=== PATIENT | female | born 1970 | race Caucasian/White ===

== ENCOUNTER 2017-12-16 08:48 | Observation (INO) | payer BC ==
[~2017-12-16] VITALS: Ht 177.8 cm; Wt 100.0 kg
[~2017-12-16 08:48] MED LIST: ARIP5TAB4 PO; ASPI81TA52 PO; HYDR-569 PO; OMEP20TA5 PO; SIMV10TA6 PO
[2017-12-16] MEDS ORDERED: metoprolol tartrate 1mg/ml inj IV ONE ×2 (08:55→09:18)
[2017-12-16] MEDS ORDERED: aspirin 81mg tab.chew PO ONE (08:55)
[2017-12-16 09:15] LABS: BASOPHILS # (AUTO) 0.1 X10'3 (0-0.2); BASOPHILS % (AUTO) 0.6 % (0-1); EOSINOPHILS # (AUTO) 0.2 X10'3 (0-0.9); EOSINOPHILS % (AUTO) 1.6 % (0-6); HEMOGLOBIN 15.1 g/dl (12.0-16.0); LYMPHOCYTES # (AUTO) 2.5 X10'3 (1.1-4.8); LYMPHOCYTES % (AUTO) 21.3 % (21-51); MEAN CORPUSCULAR HEMOGLOBIN 37.7 PG (27.0-31.0); MEAN CORPUSCULAR HGB CONC 35.1 % (33.0-36.5); MEAN CORPUSCULAR VOLUME 107.5 FL (78-98); MEAN PLATELET VOLUME 7.5 FL (7.4-10.4); MONOCYTES # (AUTO) 0.5 X10'3 (0-0.9); MONOCYTES % (AUTO) 4.1 % (2-12); NEUTROPHILS # (AUTO) 8.7 X10'3 (1.8-7.7); NEUTROPHILS % (AUTO) 72.4 % (42-75); PLATELET COUNT 255 X10'3 (140-440); RED CELL DISTRIBUTION WIDTH 12.4 % (11.5-14.5); WHITE BLOOD COUNT 11.9 X10'3 (4.5-11.0)
[2017-12-16] MEDS ORDERED: nitroGLYCERIN 0.4mg SUBLingual tab SL ONE (09:18)
[2017-12-16] MEDS ORDERED: aspirin 325mg tablet, delayed-release (Ecotrin) PO ONE (09:19)
[2017-12-16] MEDS ORDERED: aspirin 81mg tab.chew ONE (09:20)
[2017-12-16 09:24] LABS: PROTHROMBIN TIME 9.9 SECONDS (9.0-12.0)
[2017-12-16 09:30] LABS: ALANINE AMINOTRANSFERASE 33 U/L (12-78); ALBUMIN 3.8 G/DL (3.4-5.0); ALBUMIN/GLOBULIN RATIO 1.2 (1.1-1.5); ALKALINE PHOSPHATASE 87 IU/L (46-116); ANION GAP 8 (8-16); ASPARTATE AMINO TRANSFERASE 17 U/L (10-37); BILIRUBIN,TOTAL 0.8 MG/DL (0.1-1.0); BLOOD UREA NITROGEN 11 MG/DL (7-18); BUN/CREATININE RATIO 15.1 (6.6-38.0); CALCIUM 8.8 MG/DL (8.5-10.1); CHLORIDE 105 MMOL/L (99-107); CREATININE 0.73 MG/DL (0.40-0.90); GLUCOSE 102 MG/DL (70-104); SODIUM 140 MMOL/L (135-145); TOTAL CARBON DIOXIDE 26.6 MMOL/L (24-32); TOTAL PROTEIN 7.1 G/DL (6.4-8.2); eGFR 85 ML/MIN
[2017-12-16] MEDS: nitroGLYCERIN 0.4mg SUBLingual tab SL PRN ×2 (09:39→09:53)
[2017-12-16] MEDS ORDERED: metoprolol tartrate 25mg tablet ONE (10:14)
[2017-12-16] MEDS ORDERED: metoprolol tartrate 50mg tablet PO ONE (10:20)
[2017-12-16] MEDS ORDERED: regadenoson 0.4mg/5ml syringe IV ONE (10:20)
[2017-12-16] MEDS ORDERED: magnesium Cl slow-release 64mg tablet PO PRN (10:20)
[2017-12-16] MEDS: K and/or MAG REPLACEMENT MC SCH (10:20)
[2017-12-16] MEDS ORDERED: magnesium 4gm in 100ml NS 100 ML IV PRN (10:20)
[2017-12-16] MEDS ORDERED: magnesium hydroxide 30ml (MOM) UD suspension PO PRN (10:20)
[2017-12-16] MEDS ORDERED: HYDROmorphone inj. 0.5 MG/0.5 ML DISP.SYRIN IV PRN ×2 (10:20)
[2017-12-16] MEDS ORDERED: magnesium 2GM in 50ml NS 50 ML IV PRN (10:20)
[2017-12-16] MEDS ORDERED: CAFFEINE CITRATE 60 MG/3 ML injection vial IV PRN (10:20)
[2017-12-16] MEDS ORDERED: potassium Cl 40MEQ/NS 500ml 500 ML IV PRN ×2 (10:20)
[2017-12-16] MEDS ORDERED: nitroGLYCERIN 0.4mg SUBLingual tab SL PRN ×2 (10:20→10:35)
[2017-12-16] MEDS ORDERED: metoprolol tartrate 25mg tablet PO ONE (10:20)
[2017-12-16] MEDS ORDERED: potassium Cl 20 mEq SR tablet PO PRN ×2 (10:20)
[2017-12-16] MEDS ORDERED: mag hydrox/Alum hydrox/simeth 30ml oral suspension PO PRN (10:20)
[2017-12-16] MEDS ORDERED: acetaminophen 325mg tablet PO PRN ×2 (10:20)
[2017-12-16] MEDS ORDERED: ondansetron/PF 4mg/2ml inj IV PRN (10:20)
[2017-12-16] MEDS ORDERED: metoprolol tartrate 1mg/ml inj IV PRN (10:20)
[2017-12-16 11:11] LABS: HEMOGLOBIN A1C 5.6 % (4.5-6.2)
[2017-12-16] MEDS ORDERED: iohexol 350MG/ML 100ml bottle IV ONE (11:59)
[2017-12-16] MEDS ORDERED: lisinopril 20mg tablet ONE (12:51)
[2017-12-16] MEDS: lisinopril 20mg tablet PO SCH (13:07)
[2017-12-16 14:00] VITALS: BP 121/73
[2017-12-16 15:00] VITALS: BP 125/73
[2017-12-16] MEDS ORDERED: HYDROmorphone 1 mg/ml syringe ONE (16:20)
[2017-12-16] MEDS: heparin, porcine 5000 units/ml vial SQ SCH (16:24)
[2017-12-16 18:00] VITALS: BP 112/98
[2017-12-16 19:00] VITALS: BP 160/85
[2017-12-16] MEDS: metoprolol tartrate 12.5mg (1/2 tablet) PO SCH (20:00)
[2017-12-16] MEDS ORDERED: SIMVASTATIN 5 MG PO SCH (21:00)
[2017-12-16] MEDS ORDERED: temazepam 15mg capsule PO PRN (21:00)
[2017-12-16 21:50] LABS: MAGNESIUM 2.2 MG/DL (1.5-2.4); POTASSIUM 3.7 MMOL/L (3.5-5.1)
[2017-12-16 22:00] VITALS: BP 108/82
[2017-12-16] MEDS: HYDROcodone/acetaminophen 5mg/325mg tablet PO PRN (22:43)
[2017-12-16 23:00] VITALS: BP 136/74
[2017-12-17] VITALS (12 sets, daily range): BP systolic 115–175; BP diastolic 62–89
[2017-12-17] MEDS: heparin, porcine 5000 units/ml vial SQ SCH ×3 (00:06→16:00)
[2017-12-17 05:22] LABS: HEMOGLOBIN 14.4 g/dl (12.0-16.0); MEAN CORPUSCULAR HEMOGLOBIN 37.3 PG (27.0-31.0); MEAN CORPUSCULAR HGB CONC 34.3 % (33.0-36.5); MEAN CORPUSCULAR VOLUME 108.9 FL (78-98); MEAN PLATELET VOLUME 8.1 FL (7.4-10.4); PLATELET COUNT 240 X10'3 (140-440); RED BLOOD COUNT 3.85 X10'6 (4.20-5.60); RED CELL DISTRIBUTION WIDTH 12.7 % (11.5-14.5); WHITE BLOOD COUNT 9.5 X10'3 (4.5-11.0)
[2017-12-17 06:03] LABS: ALBUMIN 3.3 G/DL (3.4-5.0); ANION GAP 8 (8-16); BLOOD UREA NITROGEN 13 MG/DL (7-18); BUN/CREATININE RATIO 12.1 (6.6-38.0); CALCIUM 8.7 MG/DL (8.5-10.1); CHLORIDE 108 MMOL/L (99-107); CHOL/HDL RATIO 6.9 (0.00-4.99); CHOLESTEROL 158 MG/DL (0-200); CREATININE 1.07 MG/DL (0.40-0.90); GLUCOSE 120 MG/DL (70-104); HDL CHOLESTEROL 23 MG/DL (35-60); LDL CHOLESTEROL 96 MG/DL (50-100); MAGNESIUM 2.2 MG/DL (1.5-2.4); POTASSIUM 3.6 MMOL/L (3.5-5.1); SODIUM 142 MMOL/L (135-145); TOTAL CARBON DIOXIDE 25.7 MMOL/L (24-32); TRIGLYCERIDES 364 MG/DL (20-135); eGFR 55 ML/MIN
[2017-12-17] MEDS ORDERED: potassium Cl 20 mEq SR tablet PO ONE (06:20)
[2017-12-17] MEDS: lisinopril 20mg tablet PO SCH (07:20)
[2017-12-17] MEDS: metoprolol tartrate 12.5mg (1/2 tablet) PO SCH (07:22)
[2017-12-17] MEDS ORDERED: pantoprazole 40mg Tablet.DR PO SCH (07:30)
[2017-12-17] MEDS ORDERED: regadenoson 0.4mg/5ml syringe IV ONE ×2 (07:40→09:22)
[2017-12-17] MEDS: K and/or MAG REPLACEMENT MC SCH (08:00)
[2017-12-17] MEDS ORDERED: aripiprazole 5mg tablet PO SCH (08:00)
[2017-12-17] MEDS ORDERED: aspirin 325mg tablet PO SCH (08:30)
[2017-12-17] MEDS ORDERED: CAFFEINE CITRATE 60 MG/3 ML injection vial IV ONE (09:22)
[2017-12-17] MEDS ORDERED: pneumococcal 23-VAL P-sac vacc 25 mcg/0.5ml vial IMVAC ONE (10:00)
[2017-12-17] MEDS ORDERED: LISI-600 PO (12:35)
[2017-12-17] MEDS: HYDROcodone/acetaminophen 5mg/325mg tablet PO PRN (12:53)
== END 2017-12-17 16:30 | disposition home or self-care (01) ==
LOC: ER 08:48 → ED HOLD 10:20 → EDBEDREQTM 12:06 → PCU 3S 13:45
PROVIDERS: ADMIT Family Medicine; ATTEND Family Medicine
DX: R07.89 Other chest pain (principal); I10 Essential (primary) hypertension; J43.9 Emphysema, unspecified; F17.210 Nicotine dependence, cigarettes, uncomplicated; I20.0 Unstable angina; F41.1 Generalized anxiety disorder; E78.5 Hyperlipidemia, unspecified; J40 Bronchitis, not specified as acute or chronic; K21.9 Gastro-esophageal reflux disease without esophagitis; E03.9 Hypothyroidism, unspecified; E78.00 Pure hypercholesterolemia, unspecified; Z23 Encounter for immunization; Z90.710 Acquired absence of both cervix and uterus; Z79.899 Other long term (current) drug therapy; Z86.73 Personal history of transient ischemic attack (TIA), and cerebral infarction without residual deficits; Z83.3 Family history of diabetes mellitus; Z82.49 Family history of ischemic heart disease and other diseases of the circulatory system; Z81.8 Family history of other mental and behavioral disorders
CPT/HCPCS: 36415; 71045; 71275; 78452; 80048; 80053; 80061; 83036; 83735; 83880; 84132; 84443; 84484; 85025; 85027; 85610; 87070; 90732; 93005; 93017; 93306; 96372; 99285; A9500; G0378; J1170; J1644; J7030; Q9967; J3490

== ENCOUNTER → 2018-11-04 | Emergency (ER) | payer BC ==
[~2018-11-04] VITALS: Ht 180.3 cm; Wt 100.0 kg
[~2018-11-04] MED LIST changes: -ARIP5TAB4 PO; -ASPI81TA52 PO; -HYDR-569 PO; +LISI-600 PO; -OMEP20TA5 PO; +nitroGLYCERIN 0.4mg SUBLingual tab SL PRN
[2018-11-04 10:39] LABS: ALANINE AMINOTRANSFERASE 33 U/L (12-78); ALBUMIN 3.8 G/DL (3.4-5.0); ALBUMIN/GLOBULIN RATIO 1.2 (1.1-1.5); ALKALINE PHOSPHATASE 68 IU/L (46-116); ANION GAP 6 (8-16); ASPARTATE AMINO TRANSFERASE 18 U/L (10-37); BILIRUBIN,TOTAL 0.5 MG/DL (0.1-1.0); BLOOD UREA NITROGEN 12 MG/DL (7-18); BUN/CREATININE RATIO 15.6 (6.6-38.0); CHLORIDE 107 MMOL/L (99-107); CREATININE 0.77 MG/DL (0.40-0.90); GLUCOSE 108 MG/DL (70-104); POTASSIUM 3.9 MMOL/L (3.5-5.1); SODIUM 141 MMOL/L (135-145); TOTAL CARBON DIOXIDE 27.9 MMOL/L (24-32); eGFR 79 ML/MIN
[2018-11-04 10:45] LABS: PARTIAL THROMBOPLASTIN TIME 27 SECONDS (22-32)
[2018-11-04 10:52] LABS: BASOPHILS # (AUTO) 0.1 X10'3 (0-0.2); BASOPHILS % (AUTO) 0.7 % (0-1); EOSINOPHILS # (AUTO) 0.1 X10'3 (0-0.9); EOSINOPHILS % (AUTO) 0.6 % (0-6); HEMATOCRIT 43.3 % (35.0-45.0); HEMOGLOBIN 14.7 g/dl (12.0-16.0); LYMPHOCYTES # (AUTO) 2.2 X10'3 (1.1-4.8); MEAN CORPUSCULAR HEMOGLOBIN 37.2 PG (27.0-31.0); MEAN CORPUSCULAR HGB CONC 33.9 g/dL (33.0-36.5); MEAN CORPUSCULAR VOLUME 109.7 FL (78-98); MEAN PLATELET VOLUME 7.7 FL (7.4-10.4); MONOCYTES # (AUTO) 0.4 X10'3 (0-0.9); MONOCYTES % (AUTO) 5.2 % (2-12); NEUTROPHILS # (AUTO) 5.7 X10'3 (1.8-7.7); NEUTROPHILS % (AUTO) 67.5 % (42-75); PLATELET COUNT 254 X10'3 (140-440); RED BLOOD COUNT 3.94 X10'6 (4.20-5.60); RED CELL DISTRIBUTION WIDTH 12.8 % (11.5-14.5); WHITE BLOOD COUNT 8.5 X10'3 (4.5-11.0)
[2018-11-04 10:53] LABS: PLATELET ESTIMATE NORMAL
[2018-11-04 11:49] VITALS: BP 117/53
== END | disposition home or self-care (01) ==
LOC: ER 09:49
DX: R07.9 Chest pain, unspecified (principal); E78.00 Pure hypercholesterolemia, unspecified; I10 Essential (primary) hypertension; K21.9 Gastro-esophageal reflux disease without esophagitis; E03.9 Hypothyroidism, unspecified; F17.200 Nicotine dependence, unspecified, uncomplicated; Z86.73 Personal history of transient ischemic attack (TIA), and cerebral infarction without residual deficits; Z98.890 Other specified postprocedural states; Z88.8 Allergy status to other drugs, medicaments and biological substances; Z91.040 Latex allergy status; Z79.899 Other long term (current) drug therapy
CPT/HCPCS: 36415; 71045; 80053; 84484; 85025; 85610; 85730; 93005; 99284

== ENCOUNTER 2018-11-10 05:42 | Emergency (ER) | payer BC ==
[~2018-11-10] VITALS: Ht 180.3 cm; Wt 100.0 kg
[~2018-11-10 05:42] MED LIST changes: -nitroGLYCERIN 0.4mg SUBLingual tab SL PRN
[2018-11-10 08:29] LABS: BASOPHILS % (AUTO) 0.4 % (0-1); EOSINOPHILS % (AUTO) 0.5 % (0-6); HEMATOCRIT 41.2 % (35.0-45.0); HEMOGLOBIN 14.3 g/dl (12.0-16.0); LYMPHOCYTES # (AUTO) 1.9 X10'3 (1.1-4.8); LYMPHOCYTES % (AUTO) 22.1 % (21-51); MEAN CORPUSCULAR HEMOGLOBIN 37.9 PG (27.0-31.0); MEAN CORPUSCULAR HGB CONC 34.8 g/dL (33.0-36.5); MEAN CORPUSCULAR VOLUME 108.8 FL (78-98); MEAN PLATELET VOLUME 7.5 FL (7.4-10.4); MONOCYTES # (AUTO) 0.5 X10'3 (0-0.9); MONOCYTES % (AUTO) 5.6 % (2-12); NEUTROPHILS % (AUTO) 71.4 % (42-75); PLATELET COUNT 227 X10'3 (140-440); RED BLOOD COUNT 3.78 X10'6 (4.20-5.60); RED CELL DISTRIBUTION WIDTH 12.4 % (11.5-14.5); WHITE BLOOD COUNT 8.4 X10'3 (4.5-11.0)
[2018-11-10 08:40] LABS: ALANINE AMINOTRANSFERASE 28 U/L (12-78); ALBUMIN 3.6 G/DL (3.4-5.0); ALBUMIN/GLOBULIN RATIO 1.2 (1.1-1.5); ALKALINE PHOSPHATASE 61 IU/L (46-116); ANION GAP 6 (8-16); ASPARTATE AMINO TRANSFERASE 16 U/L (10-37); BILIRUBIN,TOTAL 0.4 MG/DL (0.1-1.0); BLOOD UREA NITROGEN 17 MG/DL (7-18); BUN/CREATININE RATIO 18.9 (6.6-38.0); CHLORIDE 107 MMOL/L (99-107); GLUCOSE 103 MG/DL (70-104); POTASSIUM 4.3 MMOL/L (3.5-5.1); SODIUM 140 MMOL/L (135-145); TOTAL CARBON DIOXIDE 26.6 MMOL/L (24-32); TOTAL PROTEIN 6.7 G/DL (6.4-8.2); eGFR 66 ML/MIN
[2018-11-10] MEDS ORDERED: ketorolac tromethamine 15mg/ml inj. IV ONE (08:45)
[2018-11-10 09:46] VITALS: BP 122/70
== END 2018-11-10 09:48 | disposition home or self-care (01) ==
LOC: ER 05:43
DX: R07.89 Other chest pain (principal); E78.00 Pure hypercholesterolemia, unspecified; I10 Essential (primary) hypertension; K21.9 Gastro-esophageal reflux disease without esophagitis; E03.9 Hypothyroidism, unspecified; F17.200 Nicotine dependence, unspecified, uncomplicated; Z86.73 Personal history of transient ischemic attack (TIA), and cerebral infarction without residual deficits; Z98.890 Other specified postprocedural states; Z88.8 Allergy status to other drugs, medicaments and biological substances; Z91.040 Latex allergy status; Z79.899 Other long term (current) drug therapy
CPT/HCPCS: 36415; 71045; 80053; 84484; 85025; 93005; 96374; 99284; J1885

== ENCOUNTER 2018-12-16 16:32 | Emergency (ER) | payer BC ==
[~2018-12-16] VITALS: Ht 177.8 cm; Wt 100.0 kg
[2018-12-16 17:44] LABS: BASOPHILS # (AUTO) 0.1 X10'3 (0-0.2); BASOPHILS % (AUTO) 0.7 % (0-1); EOSINOPHILS # (AUTO) 0.1 X10'3 (0-0.9); EOSINOPHILS % (AUTO) 1.1 % (0-6); HEMATOCRIT 41.3 % (35.0-45.0); HEMOGLOBIN 14.3 g/dl (12.0-16.0); LYMPHOCYTES # (AUTO) 3.4 X10'3 (1.1-4.8); LYMPHOCYTES % (AUTO) 30.6 % (21-51); MEAN CORPUSCULAR HEMOGLOBIN 37.5 PG (27.0-31.0); MEAN CORPUSCULAR HGB CONC 34.7 g/dL (33.0-36.5); MEAN CORPUSCULAR VOLUME 108.1 FL (78-98); MEAN PLATELET VOLUME 7.8 FL (7.4-10.4); MONOCYTES # (AUTO) 0.7 X10'3 (0-0.9); MONOCYTES % (AUTO) 6.3 % (2-12); NEUTROPHILS # (AUTO) 6.7 X10'3 (1.8-7.7); NEUTROPHILS % (AUTO) 61.3 % (42-75); PLATELET COUNT 256 X10'3 (140-440); RED BLOOD COUNT 3.82 X10'6 (4.20-5.60); RED CELL DISTRIBUTION WIDTH 13.1 % (11.5-14.5)
[2018-12-16] MEDS ORDERED: normal saline 1000ML IV soln IVB ONE (17:45)
[2018-12-16] MEDS ORDERED: methylPREDNISolone sod succ 125mg/2ml vial IV ONE (17:45)
[2018-12-16] MEDS ORDERED: albuterol 2.5 MG/3 ML nebule CONTNEB PRN (17:45)
[2018-12-16] MEDS ORDERED: VENL37.589 PO (17:48)
[2018-12-16] MEDS ORDERED: LISI-644 PO (17:48)
[2018-12-16 17:49] LABS: ALANINE AMINOTRANSFERASE 36 U/L (12-78); ALBUMIN 4.2 G/DL (3.4-5.0); ALBUMIN/GLOBULIN RATIO 1.2 (1.1-1.5); ALKALINE PHOSPHATASE 71 IU/L (46-116); ANION GAP 10 (8-16); ASPARTATE AMINO TRANSFERASE 18 U/L (10-37); BILIRUBIN,TOTAL 0.3 MG/DL (0.1-1.0); BLOOD UREA NITROGEN 11 MG/DL (7-18); BUN/CREATININE RATIO 14.5 (6.6-38.0); CALCIUM 9.3 MG/DL (8.5-10.1); CHLORIDE 106 MMOL/L (99-107); CREATININE 0.76 MG/DL (0.40-0.90); GLUCOSE 93 MG/DL (70-104); SODIUM 141 MMOL/L (135-145); TOTAL CARBON DIOXIDE 25.4 MMOL/L (24-32); TOTAL PROTEIN 7.7 G/DL (6.4-8.2); eGFR 81 ML/MIN
[2018-12-16 17:52] LABS: PARTIAL THROMBOPLASTIN TIME 28 SECONDS (22-32)
[2018-12-16] MEDS ORDERED: PRED20TA PO (18:51)
[2018-12-16] MEDS ORDERED: ALBU6.7H INH (18:51)
[2018-12-16 20:20] VITALS: BP 147/93
== END 2018-12-16 20:21 | disposition home or self-care (01) ==
LOC: ER 16:34
DX: J44.1 Chronic obstructive pulmonary disease with (acute) exacerbation (principal); E78.00 Pure hypercholesterolemia, unspecified; I10 Essential (primary) hypertension; K21.9 Gastro-esophageal reflux disease without esophagitis; E03.9 Hypothyroidism, unspecified; F17.200 Nicotine dependence, unspecified, uncomplicated; Z98.890 Other specified postprocedural states; Z88.8 Allergy status to other drugs, medicaments and biological substances; Z79.899 Other long term (current) drug therapy
CPT/HCPCS: 36415; 71045; 80053; 85025; 85610; 85730; 93005; 94644; 94760; 96374; 99285; J2930; J7030; 94640

== ENCOUNTER 2019-01-10 04:46 | Emergency (ER) | payer BC ==
[~2019-01-10] VITALS: Ht 180.3 cm; Wt 100.0 kg
[~2019-01-10 04:46] MED LIST changes: +ALBU6.7H INH; -LISI-600 PO; +LISI-644 PO; +VENL37.589 PO
[2019-01-10] MEDS ORDERED: aspirin 81mg tab.chew PO ONE (05:00)
--- NOTE | 2019-01-10 05:18 | NUR ---
PT FALLS ASLEEP EASILY
[2019-01-10 05:21] LABS: BASOPHILS # (AUTO) 0.1 X10'3 (0-0.2); BASOPHILS % (AUTO) 0.7 % (0-1); EOSINOPHILS # (AUTO) 0.1 X10'3 (0-0.9); EOSINOPHILS % (AUTO) 1.4 % (0-6); HEMATOCRIT 39.9 % (35.0-45.0); HEMOGLOBIN 14.1 g/dl (12.0-16.0); LYMPHOCYTES # (AUTO) 3.5 X10'3 (1.1-4.8); LYMPHOCYTES % (AUTO) 41.7 % (21-51); MEAN CORPUSCULAR HGB CONC 35.3 g/dL (33.0-36.5); MEAN CORPUSCULAR VOLUME 110.4 FL (78-98); MEAN PLATELET VOLUME 7.7 FL (7.4-10.4); MONOCYTES # (AUTO) 0.5 X10'3 (0-0.9); NEUTROPHILS # (AUTO) 4.3 X10'3 (1.8-7.7); NEUTROPHILS % (AUTO) 50.2 % (42-75); PLATELET COUNT 281 X10'3 (140-440); RED BLOOD COUNT 3.62 X10'6 (4.20-5.60); RED CELL DISTRIBUTION WIDTH 13.2 % (11.5-14.5); WHITE BLOOD COUNT 8.5 X10'3 (4.5-11.0)
[2019-01-10 05:51] LABS: ANISOCYTOSIS 1+; PLATELET ESTIMATE NORMAL
[2019-01-10 05:52] LABS: TEAR DROP CELLS FEW
[2019-01-10 06:12] LABS: ALANINE AMINOTRANSFERASE 37 U/L (12-78); ALBUMIN 3.6 G/DL (3.4-5.0); ALBUMIN/GLOBULIN RATIO 1.2 (1.1-1.5); ALKALINE PHOSPHATASE 60 IU/L (46-116); ANION GAP 9 (8-16); BILIRUBIN,TOTAL 0.1 MG/DL (0.1-1.0); BLOOD UREA NITROGEN 15 MG/DL (7-18); BUN/CREATININE RATIO 16.3 (6.6-38.0); CALCIUM 8.2 MG/DL (8.5-10.1); CHLORIDE 108 MMOL/L (99-107); CREATININE 0.92 MG/DL (0.40-0.90); MAGNESIUM 2.5 MG/DL (1.5-2.4); SODIUM 141 MMOL/L (135-145); TOTAL CARBON DIOXIDE 24.3 MMOL/L (24-32); TOTAL PROTEIN 6.7 G/DL (6.4-8.2); eGFR 65 ML/MIN
[2019-01-10 06:27] LABS: ASPARTATE AMINO TRANSFERASE 24 U/L (10-37); GLUCOSE 111 MG/DL (70-104); POTASSIUM 3.8 MMOL/L (3.5-5.1)
[2019-01-10] MEDS ORDERED: LEVO750T21 PO (09:24)
[2019-01-10 09:36] VITALS: BP 109/63
== END 2019-01-10 09:37 | disposition home or self-care (01) ==
LOC: ER 04:46
DX: R07.89 Other chest pain (principal); E78.00 Pure hypercholesterolemia, unspecified; I10 Essential (primary) hypertension; K21.9 Gastro-esophageal reflux disease without esophagitis; E03.9 Hypothyroidism, unspecified; Z86.73 Personal history of transient ischemic attack (TIA), and cerebral infarction without residual deficits; Z98.890 Other specified postprocedural states; Z91.040 Latex allergy status; Z88.8 Allergy status to other drugs, medicaments and biological substances; Z79.899 Other long term (current) drug therapy
CPT/HCPCS: 36415; 71045; 80053; 83735; 83880; 84484; 85025; 93005; 99284

== ENCOUNTER 2019-03-10 20:15 | Emergency (ER) | payer BC ==
[~2019-03-10] VITALS: Ht 177.8 cm; Wt 95.5 kg
[~2019-03-10 20:15] MED LIST changes: -ALBU6.7H INH; +ALBU6.7H9 INH
[2019-03-10] MEDS ORDERED: ketorolac trometh. 30mg/ml inj. IV ONE (20:55)
[2019-03-10] MEDS ORDERED: normal saline 1000ML IV soln IVB ONE (20:55)
[2019-03-10] MEDS ORDERED: ondansetron/PF 4mg/2ml inj IV ONE (20:55)
[2019-03-10 20:56] LABS: CLARITY,URINE CLEAR (Clear); COLOR,URINE YELLOW (Yellow); GLUCOSE, URINE NEGATIVE (Neg); KETONES,URINE NEGATIVE (Neg); LEUKOCYTE ESTERASE ,URINE TRACE (Neg); NITRITES, URINE NEGATIVE (Neg); OCCULT BLOOD,URINE LARGE (Neg); PROTEIN,URINE NEGATIVE (Neg); UROBILINOGEN,URINE 0.2 E.U/dL (0.2-1.0)
[2019-03-10 21:00] LABS: UA COLLECTION TYPE CLN CATCH MIDSTREAM
[2019-03-10 21:03] LABS: SQUAMOUS EPITHELIAL CELL,UR FEW /LPF (FEW)
[2019-03-10 21:04] LABS: WBC,URINE 0-4 /HPF (0-4)
[2019-03-10 21:05] LABS: BACTERIA,URINE 1+ /HPF (Neg)
[2019-03-10 21:10] LABS: BASOPHILS % (AUTO) 0.2 % (0-1); EOSINOPHILS % (AUTO) 0.1 % (0-6); HEMATOCRIT 42.5 % (35.0-45.0); HEMOGLOBIN 14.6 g/dl (12.0-16.0); LYMPHOCYTES # (AUTO) 1.8 X10'3 (1.1-4.8); LYMPHOCYTES % (AUTO) 14.4 % (21-51); MEAN CORPUSCULAR HEMOGLOBIN 38.2 PG (27.0-31.0); MEAN CORPUSCULAR HGB CONC 34.4 g/dL (33.0-36.5); MEAN PLATELET VOLUME 7.7 FL (7.4-10.4); MONOCYTES # (AUTO) 0.9 X10'3 (0-0.9); NEUTROPHILS # (AUTO) 9.8 X10'3 (1.8-7.7); NEUTROPHILS % (AUTO) 78.3 % (42-75); PLATELET COUNT 305 X10'3 (140-440); RED BLOOD COUNT 3.83 X10'6 (4.20-5.60); RED CELL DISTRIBUTION WIDTH 12.9 % (11.5-14.5); WHITE BLOOD COUNT 12.5 X10'3 (4.5-11.0)
[2019-03-10 21:11] LABS: ALANINE AMINOTRANSFERASE 51 U/L (12-78); ALBUMIN 3.6 G/DL (3.4-5.0); ALBUMIN/GLOBULIN RATIO 0.9 (1.1-1.5); ALKALINE PHOSPHATASE 96 IU/L (46-116); ANION GAP 9 (8-16); ASPARTATE AMINO TRANSFERASE 27 U/L (10-37); BILIRUBIN,TOTAL 0.5 MG/DL (0.1-1.0); BLOOD UREA NITROGEN 6 MG/DL (7-18); BUN/CREATININE RATIO 6.3 (6.6-38.0); CALCIUM 9.1 MG/DL (8.5-10.1); CHLORIDE 103 MMOL/L (99-107); CREATININE 0.95 MG/DL (0.40-0.90); GLUCOSE 109 MG/DL (70-104); LIPASE 236 U/L (73-393); POTASSIUM 3.9 MMOL/L (3.5-5.1); SODIUM 139 MMOL/L (135-145); TOTAL CARBON DIOXIDE 26.7 MMOL/L (24-32); TOTAL PROTEIN 7.7 G/DL (6.4-8.2); eGFR 62 ML/MIN
--- NOTE | 2019-03-10 21:16 | NUR ---
PT IS RESTING QUIETLY, WAITING FOR CT, RECEIVING 1ST LITER NS W/O
[2019-03-10] MEDS ORDERED: FLO0.4C PO (21:53)
[2019-03-10] MEDS ORDERED: DIAZ5TAB PO (21:53)
[2019-03-10] MEDS ORDERED: HYDR-4353 PO (21:53)
[2019-03-10] MEDS ORDERED: KETO10TA2 PO (21:53)
[2019-03-10] MEDS ORDERED: PHEN-824 PO (21:53)
[2019-03-10] MEDS ORDERED: OXYB5TAB16 PO (21:53)
[2019-03-10] MEDS ORDERED: ONDA4TAB6 PO (21:53)
[2019-03-10 22:04] LABS: LARGE PLATELETS FEW; PLATELET ESTIMATE NORMAL; POLYCHROMASIA 1+
[2019-03-10 22:21] VITALS: BP 101/63
== END 2019-03-10 22:23 | disposition home or self-care (01) ==
LOC: ER 20:16
DX: N39.0 Urinary tract infection, site not specified (principal); R11.2 Nausea with vomiting, unspecified; N23 Unspecified renal colic; N13.2 Hydronephrosis with renal and ureteral calculous obstruction; E78.00 Pure hypercholesterolemia, unspecified; I10 Essential (primary) hypertension; K21.9 Gastro-esophageal reflux disease without esophagitis; F10.99 Alcohol use, unspecified with unspecified alcohol-induced disorder; E03.9 Hypothyroidism, unspecified; Z86.73 Personal history of transient ischemic attack (TIA), and cerebral infarction without residual deficits; Z90.710 Acquired absence of both cervix and uterus; Z98.890 Other specified postprocedural states; Z88.8 Allergy status to other drugs, medicaments and biological substances; Z91.040 Latex allergy status; Z79.899 Other long term (current) drug therapy; Y90.9 Presence of alcohol in blood, level not specified
CPT/HCPCS: 36415; 74176; 80053; 81001; 83605; 83690; 85025; 87088; 96361; 96374; 96375; 99284; J1885; J2405; J7030

== ENCOUNTER 2019-03-21 07:44 | Emergency (ER) | payer BC ==
[~2019-03-21] VITALS: Ht 180.3 cm; Wt 95.0 kg
[~2019-03-21 07:44] MED LIST changes: +DIAZ5TAB PO; +FLO0.4C PO; +HYDR-4353 PO; +KETO10TA2 PO; +ONDA4TAB6 PO; +OXYB5TAB16 PO; +PHEN-824 PO
[2019-03-21] MEDS ORDERED: HYDROcodone/acetaminophen 10/325mg tab PO ONE (08:15)
[2019-03-21] MEDS ORDERED: IBUP-1986 PO (09:07)
[2019-03-21] MEDS ORDERED: HYDR-4353 PO (09:07)
[2019-03-21 09:20] VITALS: BP 134/83
== END 2019-03-21 09:22 | disposition home or self-care (01) ==
LOC: ER 07:44
DX: R07.81 Pleurodynia (principal); R91.8 Other nonspecific abnormal finding of lung field; E78.00 Pure hypercholesterolemia, unspecified; I10 Essential (primary) hypertension; K21.9 Gastro-esophageal reflux disease without esophagitis; E03.9 Hypothyroidism, unspecified; F10.99 Alcohol use, unspecified with unspecified alcohol-induced disorder; Z86.73 Personal history of transient ischemic attack (TIA), and cerebral infarction without residual deficits; Z87.442 Personal history of urinary calculi; Z90.710 Acquired absence of both cervix and uterus; Z98.890 Other specified postprocedural states; Z88.8 Allergy status to other drugs, medicaments and biological substances; Z91.040 Latex allergy status; Z79.899 Other long term (current) drug therapy; Y90.9 Presence of alcohol in blood, level not specified
CPT/HCPCS: 71101; 99284

== ENCOUNTER 2021-02-16 14:18 | Emergency (ER) | payer BC ==
[~2021-02-16] VITALS: Ht 177.8 cm; Wt 105.0 kg
[~2021-02-16 14:18] MED LIST changes: -ALBU6.7H9 INH; +CARV-50 PO; -DIAZ5TAB PO; -FLO0.4C PO; -HYDR-4353 PO; -KETO10TA2 PO; -LISI-644 PO; +LOSA25TA96 PO; -ONDA4TAB6 PO; -OXYB5TAB16 PO; -PHEN-824 PO; -SIMV10TA6 PO; +SIMV10TA98 PO; +VENL37.55 PO; -VENL37.589 PO
[2021-02-16 14:27] VITALS: BP 155/95
== END 2021-02-16 16:38 | disposition home or self-care (01) ==
LOC: ER 14:21
DX: S90.32XA Contusion of left foot, initial encounter (principal); M79.672 Pain in left foot; E78.00 Pure hypercholesterolemia, unspecified; I10 Essential (primary) hypertension; K21.9 Gastro-esophageal reflux disease without esophagitis; E03.9 Hypothyroidism, unspecified; Z86.73 Personal history of transient ischemic attack (TIA), and cerebral infarction without residual deficits; Z87.442 Personal history of urinary calculi; Z87.440 Personal history of urinary (tract) infections; Z87.01 Personal history of pneumonia (recurrent); Z90.710 Acquired absence of both cervix and uterus; Z98.890 Other specified postprocedural states; Z72.89 Other problems related to lifestyle; Z88.8 Allergy status to other drugs, medicaments and biological substances; Z91.040 Latex allergy status; Z79.899 Other long term (current) drug therapy; X58.XXXA Exposure to other specified factors, initial encounter; Y93.89 Activity, other specified; Y92.89 Other specified places as the place of occurrence of the external cause; Y99.8 Other external cause status
CPT/HCPCS: 73630; 99283

== ENCOUNTER 2021-05-20 09:24 | Emergency (ER) | payer BC ==
[~2021-05-20] VITALS: Ht 180.3 cm; Wt 100.0 kg
[2021-05-20 10:37] LABS: ALANINE AMINOTRANSFERASE 53 U/L (12-78); ALBUMIN 3.7 G/DL (3.4-5.0); ALKALINE PHOSPHATASE 91 IU/L (46-116); ANION GAP 9 (8-16); ASPARTATE AMINO TRANSFERASE 20 U/L (10-37); BILIRUBIN,TOTAL 0.3 MG/DL (0.1-1.0); BLOOD UREA NITROGEN 10 MG/DL (7-18); BUN/CREATININE RATIO 12.3 (6.6-38.0); CALCIUM 8.9 MG/DL (8.5-10.1); CHLORIDE 107 MMOL/L (99-107); CREATININE 0.81 MG/DL (0.40-0.90); GLUCOSE 189 MG/DL (70-104); POTASSIUM 4.1 MMOL/L (3.5-5.1); SODIUM 142 MMOL/L (135-145); TOTAL CARBON DIOXIDE 25.6 MMOL/L (24-32); TOTAL PROTEIN 7.4 G/DL (6.4-8.2); eGFR 74 ML/MIN
[2021-05-20 10:39] LABS: BASOPHILS % (AUTO) 0.6 % (0-1); EOSINOPHILS # (AUTO) 0.1 X10'3 (0-0.9); EOSINOPHILS % (AUTO) 0.9 % (0-6); HEMATOCRIT 43.4 % (35.0-45.0); HEMOGLOBIN 14.9 g/dl (12.0-16.0); LYMPHOCYTES # (AUTO) 1.9 X10'3 (1.1-4.8); MEAN CORPUSCULAR HEMOGLOBIN 36.8 PG (27.0-31.0); MEAN CORPUSCULAR HGB CONC 34.4 g/dL (33.0-36.5); MEAN CORPUSCULAR VOLUME 107.1 FL (78-98); MEAN PLATELET VOLUME 7.7 FL (7.4-10.4); MONOCYTES # (AUTO) 0.4 X10'3 (0-0.9); MONOCYTES % (AUTO) 5.4 % (2-12); NEUTROPHILS # (AUTO) 5.5 X10'3 (1.8-7.7); NEUTROPHILS % (AUTO) 69.1 % (42-75); PLATELET COUNT 244 X10'3 (140-440); RED BLOOD COUNT 4.05 X10'6 (4.20-5.60); RED CELL DISTRIBUTION WIDTH 12.2 % (11.5-14.5); WHITE BLOOD COUNT 7.9 X10'3 (4.5-11.0)
[2021-05-20] MEDS ORDERED: ketorolac tromethamine 15mg/ml inj. IM ONE (11:05)
[2021-05-20] MEDS ORDERED: AZIT-72 PO (12:53)
[2021-05-20] MEDS ORDERED: AMOX-422 PO (12:53)
[2021-05-20] MEDS ORDERED: ALBU8HFA PO (12:53)
[2021-05-20 12:59] LABS: CLARITY,URINE SLIGHTLY CLOUDY (Clear); COLOR,URINE YELLOW (Yellow); UA COLLECTION TYPE CLN CATCH MIDSTREAM
[2021-05-20 13:00] LABS: GLUCOSE, URINE NEGATIVE (Neg); KETONES,URINE NEGATIVE (Neg); LEUKOCYTE ESTERASE ,URINE NEGATIVE (Neg); NITRITES, URINE NEGATIVE (Neg); OCCULT BLOOD,URINE SMALL (Neg); PROTEIN,URINE NEGATIVE (Neg); UROBILINOGEN,URINE 0.2 E.U/dL (0.2-1.0)
[2021-05-20 13:06] LABS: SQUAMOUS EPITHELIAL CELL,UR MODERATE /LPF (FEW)
[2021-05-20 13:09] LABS: BACTERIA,URINE 1+ /HPF (Neg); RBC,URINE 0-2 /HPF (0-2)
[2021-05-20 13:56] VITALS: BP 133/74
== END 2021-05-20 13:58 | disposition home or self-care (01) ==
LOC: ER 09:24
DX: J18.9 Pneumonia, unspecified organism (principal); E78.00 Pure hypercholesterolemia, unspecified; K21.9 Gastro-esophageal reflux disease without esophagitis; E06.9 Thyroiditis, unspecified; Z87.442 Personal history of urinary calculi; Z88.8 Allergy status to other drugs, medicaments and biological substances; Z91.040 Latex allergy status; Z79.899 Other long term (current) drug therapy
CPT/HCPCS: 36415; 71045; 80053; 81001; 83880; 84484; 85025; 87077; 87088; 87186; 93005; 96372; 99285; J1885

== ENCOUNTER 2021-12-07 15:37 | Emergency (ER) | payer BC ==
[~2021-12-07] VITALS: Ht 177.8 cm; Wt 102.0 kg
[2021-12-07 16:11] LABS: BASOPHILS % (AUTO) 0.4 % (0-1); EOSINOPHILS # (AUTO) 0.1 X10'3 (0-0.9); EOSINOPHILS % (AUTO) 1.1 % (0-6); HEMATOCRIT 43.2 % (35.0-45.0); LYMPHOCYTES # (AUTO) 3.1 X10'3 (1.1-4.8); LYMPHOCYTES % (AUTO) 31.6 % (21-51); MEAN CORPUSCULAR HEMOGLOBIN 37.3 PG (27.0-31.0); MEAN CORPUSCULAR HGB CONC 34.7 g/dL (33.0-36.5); MEAN CORPUSCULAR VOLUME 107.5 FL (78-98); MONOCYTES # (AUTO) 0.7 X10'3 (0-0.9); MONOCYTES % (AUTO) 6.9 % (2-12); NEUTROPHILS # (AUTO) 5.9 X10'3 (1.8-7.7); PLATELET COUNT 263 X10'3 (140-440); RED BLOOD COUNT 4.01 X10'6 (4.20-5.60); RED CELL DISTRIBUTION WIDTH 12.8 % (11.5-14.5); WHITE BLOOD COUNT 9.9 X10'3 (4.5-11.0)
[2021-12-07 16:29] LABS: ALANINE AMINOTRANSFERASE 62 U/L (12-78); ALBUMIN 3.9 G/DL (3.4-5.0); ALBUMIN/GLOBULIN RATIO 1.1 (1.1-1.5); ALKALINE PHOSPHATASE 84 IU/L (46-116); ANION GAP 7 (8-16); ASPARTATE AMINO TRANSFERASE 25 U/L (10-37); BILIRUBIN,TOTAL 0.3 MG/DL (0.1-1.0); BLOOD UREA NITROGEN 13 MG/DL (7-18); BUN/CREATININE RATIO 14.8 (6.6-38.0); CALCIUM 9.2 MG/DL (8.5-10.1); CHLORIDE 108 MMOL/L (99-107); CREATININE 0.88 MG/DL (0.40-0.90); GLUCOSE 105 MG/DL (70-104); SODIUM 143 MMOL/L (135-145); TOTAL CARBON DIOXIDE 28.4 MMOL/L (24-32); TOTAL PROTEIN 7.4 G/DL (6.4-8.2); eGFR 67 ML/MIN
[2021-12-07 20:54] VITALS: BP 159/90
== END 2021-12-07 20:56 | disposition home or self-care (01) ==
LOC: ER 15:38
DX: R07.89 Other chest pain (principal); R11.0 Nausea; R61 Generalized hyperhidrosis; F41.9 Anxiety disorder, unspecified; R06.02 Shortness of breath; R19.7 Diarrhea, unspecified; R00.2 Palpitations; R53.83 Other fatigue; E78.00 Pure hypercholesterolemia, unspecified; I10 Essential (primary) hypertension; K21.9 Gastro-esophageal reflux disease without esophagitis; Z87.440 Personal history of urinary (tract) infections; Z87.442 Personal history of urinary calculi; Z87.81 Personal history of (healed) traumatic fracture; E03.9 Hypothyroidism, unspecified; F17.200 Nicotine dependence, unspecified, uncomplicated; Z86.73 Personal history of transient ischemic attack (TIA), and cerebral infarction without residual deficits; Z87.01 Personal history of pneumonia (recurrent); Z98.891 History of uterine scar from previous surgery; Z90.710 Acquired absence of both cervix and uterus; Z72.89 Other problems related to lifestyle; Z88.8 Allergy status to other drugs, medicaments and biological substances; Z91.040 Latex allergy status; Z79.899 Other long term (current) drug therapy
CPT/HCPCS: 36415; 71046; 80053; 83880; 84484; 85025; 93005; 99285

== ENCOUNTER 2022-11-30 10:24 | Inpatient (IN) | payer BC ==
[~2022-11-30] VITALS: Ht 177.8 cm; Wt 92.0 kg
[2022-11-30] MEDS ORDERED: CefTRIAXone 2gm/D5W 50ml BAG 50 ML IV ONE (11:10)
[2022-11-30] MEDS ORDERED: normal saline 1000ml 1,000 ML IV ONE (11:20)
[2022-11-30 11:26] LABS: BASOPHILS # (AUTO) 0.1 X10'3 (0-0.2); BASOPHILS % (AUTO) 0.5 % (0-1); EOSINOPHILS % (AUTO) 0.1 % (0-6); HEMATOCRIT 43.7 % (35.0-45.0); HEMOGLOBIN 15.1 g/dl (12.0-16.0); LYMPHOCYTES # (AUTO) 1.5 X10'3 (1.1-4.8); LYMPHOCYTES % (AUTO) 9.4 % (21-51); MEAN CORPUSCULAR HEMOGLOBIN 37.1 PG (27.0-31.0); MEAN CORPUSCULAR HGB CONC 34.6 g/dL (33.0-36.5); MEAN CORPUSCULAR VOLUME 107.2 FL (78-98); MEAN PLATELET VOLUME 7.9 FL (7.4-10.4); MONOCYTES % (AUTO) 6.3 % (2-12); NEUTROPHILS # (AUTO) 13.1 X10'3 (1.8-7.7); NEUTROPHILS % (AUTO) 83.7 % (42-75); PLATELET COUNT 195 X10'3 (140-440); RED BLOOD COUNT 4.08 X10'6 (4.20-5.60); RED CELL DISTRIBUTION WIDTH 12.3 % (11.5-14.5); WHITE BLOOD COUNT 15.7 X10'3 (4.5-11.0)
[2022-11-30 11:43] LABS: ALANINE AMINOTRANSFERASE 57 U/L (12-78); ALBUMIN 3.6 G/DL (3.4-5.0); ALBUMIN/GLOBULIN RATIO 0.8 (1.1-1.5); ALKALINE PHOSPHATASE 94 IU/L (46-116); ANION GAP 11 (8-16); ASPARTATE AMINO TRANSFERASE 31 U/L (10-37); BILIRUBIN,TOTAL 1.4 MG/DL (0.1-1.0); BLOOD UREA NITROGEN 13 MG/DL (7-18); BUN/CREATININE RATIO 11.6 (10.0-20.0); CALCIUM 9.2 MG/DL (8.5-10.1); CHLORIDE 96 MMOL/L (99-107); CREATININE 1.12 MG/DL (0.40-0.90); GLUCOSE 142 MG/DL (70-104); LIPASE 148 U/L (73-393); SODIUM 132 MMOL/L (135-145); TOTAL CARBON DIOXIDE 24.7 MMOL/L (24-32); TOTAL PROTEIN 8.2 G/DL (6.4-8.2); eGFR 51 ML/MIN
[2022-11-30 11:47] LABS: CLARITY,URINE CLOUDY (Clear)
[2022-11-30 11:47] LABS: POTASSIUM 3.4 MMOL/L (3.5-5.1)
[2022-11-30 11:48] LABS: COLOR,URINE AMBER (Yellow); UA COLLECTION TYPE CLN CATCH MIDSTREAM; URINE HCG NEGATIVE (NEG)
[2022-11-30 11:57] LABS: MUCUS STRANDS FEW /LPF (Neg); SQUAMOUS EPITHELIAL CELL,UR MANY /LPF (FEW)
[2022-11-30 11:59] LABS: WBC,URINE 20-30 /HPF (0-4)
[2022-11-30 12:01] LABS: BACTERIA,URINE 3+ /HPF (Neg)
[2022-11-30] MEDS ORDERED: acetaminophen 1,000mg/100ml IV 100 ML IV ONE (13:10)
[2022-11-30] MEDS ORDERED: normal saline 1000ML IV soln IVB ONE (13:10)
[2022-11-30] MEDS ORDERED: magnesium 4gm in 100ml NS 100 ML IV PRN (15:40)
[2022-11-30] MEDS ORDERED: magnesium 2GM in 50ml NS 50 ML IV PRN (15:40)
[2022-11-30] MEDS ORDERED: potassium Cl 20 mEq SR tablet PO PRN (15:40)
[2022-11-30] MEDS ORDERED: ondansetron/PF 4mg/2ml inj IV PRN (15:40)
[2022-11-30] MEDS ORDERED: magnesium Cl slow-release 64mg tablet PO PRN (15:40)
[2022-11-30] MEDS ORDERED: potassium Cl 40MEQ/1/2NS 520ml 520 ML IV PRN (15:40)
[2022-11-30] MEDS ORDERED: mag hydrox/Alum hydrox/simeth 30ml oral suspension PO PRN (15:40)
[2022-11-30] MEDS ORDERED: acetaminophen 325mg tablet PO PRN (15:40)
[2022-11-30] MEDS ORDERED: SIMV5TAB58 PO (16:26)
[2022-11-30] MEDS ORDERED: VENL75CA61 PO (16:26)
[2022-11-30] MEDS ORDERED: LOSA50TA64 PO (16:26)
--- NOTE | 2022-11-30 17:32 | NUR ---
received report from ed and assumed care of patient. pt arrival time to 350 bed b at 1720. a/ox3 and vss discussed plan of care with patient who verbalizes understanding. normal sinus rhythm on monitor
[2022-11-30] MEDS: normal saline 1000ml 1,000 ML IV SCH (17:36)
[2022-11-30 18:00] VITALS: BP 100/60
--- NOTE | 2022-11-30 18:45 | NUR ---
Patient in room [facility] 350. I have received report from AZAM Sanchez and had the opportunity to ask questions and assume patient care.
[2022-11-30] MEDS: SIMVASTATIN 5 MG PO SCH (21:00)
[2022-11-30] MEDS: K and/or MAG REPLACEMENT MC SCH (21:04)
[2022-11-30] MEDS: docusate sod 100mg capsule PO SCH (21:45)
[2022-11-30] MEDS: heparin, porcine 5000 units/ml vial SQ SCH (21:45)
[2022-11-30] MEDS: magnesium hydroxide 30ml (MOM) UD suspension PO PRN (21:54)
[2022-11-30] MEDS: potassium Cl 20 mEq SR tablet PO PRN (21:54)
[2022-11-30] MEDS ORDERED: traMADol 50MG tablet PO ONE (22:05)
[2022-11-30 23:00] VITALS: BP 115/67
[2022-12-01] MEDS ORDERED: ibuprofen tablet 400 MG TABLET PO ONE (01:15)
[2022-12-01] MEDS: potassium Cl 20 mEq SR tablet PO PRN ×2 (02:14→06:00)
[2022-12-01] MEDS: normal saline 1000ml 1,000 ML IV SCH ×3 (02:49→22:06)
[2022-12-01 06:00] VITALS: BP 111/68
--- NOTE | 2022-12-01 06:30 | NUR ---
Problems reprioritized. Patient report given, questions answered & plan of care reviewed with AZAM Hagen.
--- NOTE | 2022-12-01 07:00 | NUR ---
Patient in room [facility] 350B. I have received report from Antonia NASCIMENTO and had the opportunity to ask questions and assume patient care. Pt laying supine in bed, and is resting comfortably on RA. No s/s of distress, no s/s of pain at this time. BLL, call light wihtin reach, frequently used items in reach, frequent rounding, cotton candy maker socks on. Will continue to monitor.
[2022-12-01 07:03] LABS: BASOPHILS % (AUTO) 0.3 % (0-1); EOSINOPHILS % (AUTO) 0.3 % (0-6); HEMATOCRIT 36.4 % (35.0-45.0); HEMOGLOBIN 12.6 g/dl (12.0-16.0); LYMPHOCYTES # (AUTO) 0.9 X10'3 (1.1-4.8); MEAN CORPUSCULAR HEMOGLOBIN 37.2 PG (27.0-31.0); MEAN CORPUSCULAR HGB CONC 34.6 g/dL (33.0-36.5); MEAN CORPUSCULAR VOLUME 107.7 FL (78-98); MEAN PLATELET VOLUME 8.1 FL (7.4-10.4); MONOCYTES # (AUTO) 0.9 X10'3 (0-0.9); MONOCYTES % (AUTO) 13.6 % (2-12); NEUTROPHILS # (AUTO) 4.6 X10'3 (1.8-7.7); NEUTROPHILS % (AUTO) 71.8 % (42-75); PLATELET COUNT 169 X10'3 (140-440); RED BLOOD COUNT 3.38 X10'6 (4.20-5.60); RED CELL DISTRIBUTION WIDTH 12.2 % (11.5-14.5); WHITE BLOOD COUNT 6.4 X10'3 (4.5-11.0)
[2022-12-01 07:16] LABS: ALBUMIN 2.7 G/DL (3.4-5.0); ANION GAP 9 (8-16); BLOOD UREA NITROGEN 9 MG/DL (7-18); BUN/CREATININE RATIO 10.7 (10.0-20.0); CALCIUM 8.5 MG/DL (8.5-10.1); CHLORIDE 105 MMOL/L (99-107); CREATININE 0.84 MG/DL (0.40-0.90); GLUCOSE 122 MG/DL (70-104); MAGNESIUM 2.3 MG/DL (1.5-2.4); POTASSIUM 4.1 MMOL/L (3.5-5.1); SODIUM 137 MMOL/L (135-145); TOTAL CARBON DIOXIDE 23.2 MMOL/L (24-32); eGFR 71 ML/MIN
[2022-12-01] MEDS: K and/or MAG REPLACEMENT MC SCH ×2 (08:00→20:00)
[2022-12-01] MEDS ORDERED: venlafaxine XR 75mg capsule (Q24H) PO SCH (08:00)
--- NOTE | 2022-12-01 08:10 | NUR ---
PAGER ID: [phone] MESSAGE: [place] 350B- Asking for pain medicine. States Ofirmev 1,000mg/100ml IV worked well with her pain. -Xiao EXT [id number]
[2022-12-01] MEDS: magnesium hydroxide 30ml (MOM) UD suspension PO PRN (08:15)
[2022-12-01] MEDS: docusate sod 100mg capsule PO SCH ×2 (08:15→20:25)
[2022-12-01] MEDS: losartan 50mg tablet PO SCH (08:16)
[2022-12-01] MEDS: CefTRIAXone 2gm/D5W 50ml BAG 50 ML IV SCH (08:18)
[2022-12-01] MEDS: heparin, porcine 5000 units/ml vial SQ SCH ×2 (08:19→20:25)
[2022-12-01] MEDS ORDERED: acetaminophen 1,000mg/100ml IV 100 ML IV PRN (10:00)
[2022-12-01] MEDS: ibuprofen 200mg tablet PO PRN ×2 (15:26→23:28)
--- NOTE | 2022-12-01 18:29 | NUR ---
Problems reprioritized. Patient report given, questions answered & plan of care reviewed with Bridget GOMEZ.
--- NOTE | 2022-12-01 18:30 | NUR ---
Patient in room [facility] 350. I have received report from ALEX and had the opportunity to ask questions and assume patient care.
[2022-12-01 19:00] VITALS: BP 126/75
[2022-12-01] MEDS: venlafaxine XR 75mg capsule (Q24H) PO SCH (20:25)
[2022-12-01] MEDS: SIMVASTATIN 5 MG PO SCH (20:28)
[2022-12-01 22:00] VITALS: BP 117/75
[2022-12-02 06:00] VITALS: BP 136/80
--- NOTE | 2022-12-02 06:21 | NUR ---
Patient in room [facility] 350. I have received report from Lindsay NASCIMENTO and had the opportunity to ask questions and assume patient care.
[2022-12-02 06:34] LABS: ALBUMIN 2.8 G/DL (3.4-5.0); ANION GAP 9 (8-16); BASOPHILS % (AUTO) 0.6 % (0-1); BLOOD UREA NITROGEN 8 MG/DL (7-18); BUN/CREATININE RATIO 12.3 (10.0-20.0); CALCIUM 8.4 MG/DL (8.5-10.1); CHLORIDE 107 MMOL/L (99-107); CREATININE 0.65 MG/DL (0.40-0.90); GLUCOSE 172 MG/DL (70-104); HEMATOCRIT 36.1 % (35.0-45.0); HEMOGLOBIN 12.4 g/dl (12.0-16.0); LYMPHOCYTES # (AUTO) 1.1 X10'3 (1.1-4.8); LYMPHOCYTES % (AUTO) 21.1 % (21-51); MAGNESIUM 2.1 MG/DL (1.5-2.4); MEAN CORPUSCULAR HEMOGLOBIN 37.6 PG (27.0-31.0); MEAN CORPUSCULAR HGB CONC 34.4 g/dL (33.0-36.5); MEAN CORPUSCULAR VOLUME 109.2 FL (78-98); MEAN PLATELET VOLUME 8.1 FL (7.4-10.4); MONOCYTES # (AUTO) 0.6 X10'3 (0-0.9); NEUTROPHILS # (AUTO) 3.3 X10'3 (1.8-7.7); NEUTROPHILS % (AUTO) 66.3 % (42-75); PLATELET COUNT 183 X10'3 (140-440); POTASSIUM 4.2 MMOL/L (3.5-5.1); RED CELL DISTRIBUTION WIDTH 12.2 % (11.5-14.5); SODIUM 139 MMOL/L (135-145); TOTAL CARBON DIOXIDE 23.5 MMOL/L (24-32); eGFR > 90 ML/MIN
--- NOTE | 2022-12-02 06:43 | NUR ---
Problems reprioritized. Patient report given, questions answered & plan of care reviewed with LAUREN.
[2022-12-02] MEDS: CefTRIAXone 2gm/D5W 50ml BAG 50 ML IV SCH (07:18)
[2022-12-02] MEDS: normal saline 1000ml 1,000 ML IV SCH ×3 (07:23→23:00)
[2022-12-02] MEDS: losartan 50mg tablet PO SCH (07:24)
[2022-12-02] MEDS: heparin, porcine 5000 units/ml vial SQ SCH ×2 (07:26→19:17)
[2022-12-02 07:30] VITALS: BP 129/75
[2022-12-02] MEDS: docusate sod 100mg capsule PO SCH ×2 (08:00→19:11)
[2022-12-02] MEDS: venlafaxine XR 75mg capsule (Q24H) PO SCH (08:00)
[2022-12-02] MEDS: K and/or MAG REPLACEMENT MC SCH ×2 (08:00→19:10)
--- NOTE | 2022-12-02 08:55 | NUR ---
Patient refused scheduled colace this morning, education provided, patient states understanding. Patient declined scheduled effexor also, stated "I take that at night, they gave me one last night. It makes me drowsy." MD notified and aware, patient to receive in the evening.
[2022-12-02 09:52] VITALS: BP 128/81
[2022-12-02] MEDS ORDERED: venlafaxine XR 75mg capsule (Q24H) PO SCH (13:13)
[2022-12-02] MEDS: ibuprofen 200mg tablet PO PRN (15:30)
--- NOTE | 2022-12-02 15:53 | NUR ---
PAGER ID: [phone] MESSAGE: 350B [place]: No results for culture. Pt requested Pepsi several times, can she have a regular diet? Suresh White [id number] Addendum: 12/02/22 at 1623 by Cindy Maya LVN 2nd page sent
[2022-12-02 18:00] VITALS: BP 147/83
--- NOTE | 2022-12-02 18:00 | NUR ---
I have reviewed and agree with interventions, assessments, and documentation by Cindy Guillaume LVN.
--- NOTE | 2022-12-02 18:10 | NUR ---
Problems reprioritized. Patient report given, questions answered & plan of care reviewed with Olga NASCIMENTO.
[2022-12-02] MEDS: SIMVASTATIN 5 MG PO SCH (19:10)
[2022-12-02 22:00] VITALS: BP 134/75
[2022-12-03 06:45] VITALS: BP 153/87
[2022-12-03 07:08] LABS: BASOPHILS % (AUTO) 0.5 % (0-1); EOSINOPHILS % (AUTO) 0.6 % (0-6); HEMATOCRIT 37.9 % (35.0-45.0); HEMOGLOBIN 13.2 g/dl (12.0-16.0); LYMPHOCYTES # (AUTO) 1.1 X10'3 (1.1-4.8); LYMPHOCYTES % (AUTO) 21.3 % (21-51); MEAN CORPUSCULAR HEMOGLOBIN 37.3 PG (27.0-31.0); MEAN CORPUSCULAR HGB CONC 34.7 g/dL (33.0-36.5); MEAN CORPUSCULAR VOLUME 107.4 FL (78-98); MEAN PLATELET VOLUME 7.9 FL (7.4-10.4); MONOCYTES # (AUTO) 0.4 X10'3 (0-0.9); MONOCYTES % (AUTO) 7.4 % (2-12); NEUTROPHILS # (AUTO) 3.8 X10'3 (1.8-7.7); NEUTROPHILS % (AUTO) 70.2 % (42-75); PLATELET COUNT 217 X10'3 (140-440); RED BLOOD COUNT 3.53 X10'6 (4.20-5.60); RED CELL DISTRIBUTION WIDTH 12.2 % (11.5-14.5); WHITE BLOOD COUNT 5.3 X10'3 (4.5-11.0)
[2022-12-03 07:21] LABS: ALBUMIN 2.9 G/DL (3.4-5.0); ANION GAP 10 (8-16); BLOOD UREA NITROGEN 10 MG/DL (7-18); BUN/CREATININE RATIO 13.7 (10.0-20.0); CALCIUM 8.7 MG/DL (8.5-10.1); CHLORIDE 104 MMOL/L (99-107); CREATININE 0.73 MG/DL (0.40-0.90); GLUCOSE 203 MG/DL (70-104); POTASSIUM 4.2 MMOL/L (3.5-5.1); SODIUM 139 MMOL/L (135-145); TOTAL CARBON DIOXIDE 25.5 MMOL/L (24-32); eGFR 83 ML/MIN
[2022-12-03] MEDS: CefTRIAXone 2gm/D5W 50ml BAG 50 ML IV SCH (07:49)
[2022-12-03] MEDS: losartan 50mg tablet PO SCH (07:50)
[2022-12-03] MEDS: K and/or MAG REPLACEMENT MC SCH (07:50)
[2022-12-03] MEDS: heparin, porcine 5000 units/ml vial SQ SCH (07:50)
[2022-12-03] MEDS: docusate sod 100mg capsule PO SCH (07:50)
[2022-12-03] MEDS: normal saline 1000ml 1,000 ML IV SCH (07:51)
[2022-12-03 10:56] VITALS: BP 127/73
[2022-12-03] MEDS ORDERED: CEFD300C3 PO (10:58)
--- NOTE | 2022-12-03 15:00 | NUR ---
Pt stable for d/c per MD orders. All d/c ppwk was rev'd with patient. All questions, comments, and concerns were answered at this time. All personal belongings were sent with patient. PIV was removed, pt tolerated well. Tele was removed and returned to [employer]. New RX was electronically transmitted to [facility]. Pt was wheeled down in w/c to private vehicle, where daughter was waiting, by nursing staff.
--- NOTE | 2022-12-03 15:19 | NUR ---
pt wanted to leave with gown and scrub pants on since her clothes are dirty.
== END 2022-12-03 12:22 | disposition home or self-care (01) | DRG 872 ==
LOC: ER 10:24 → ED HOLD 15:39 → SUR 3N 17:09
PROVIDERS: ADMIT Family Medicine; ATTEND Family Medicine
DX: A41.9 Sepsis, unspecified organism (principal); N10 Acute pyelonephritis; E87.1 Hypo-osmolality and hyponatremia; E03.9 Hypothyroidism, unspecified; E78.00 Pure hypercholesterolemia, unspecified; F17.210 Nicotine dependence, cigarettes, uncomplicated; I10 Essential (primary) hypertension; F41.9 Anxiety disorder, unspecified; K21.9 Gastro-esophageal reflux disease without esophagitis; R31.9 Hematuria, unspecified; I95.9 Hypotension, unspecified; Z81.8 Family history of other mental and behavioral disorders; Z82.49 Family history of ischemic heart disease and other diseases of the circulatory system; Z83.3 Family history of diabetes mellitus; Z86.73 Personal history of transient ischemic attack (TIA), and cerebral infarction without residual deficits; Z87.440 Personal history of urinary (tract) infections; Z87.442 Personal history of urinary calculi; Z90.710 Acquired absence of both cervix and uterus; Z98.891 History of uterine scar from previous surgery; Z88.8 Allergy status to other drugs, medicaments and biological substances; Z91.040 Latex allergy status; Z79.899 Other long term (current) drug therapy
CPT/HCPCS: 36415; 74176; 80048; 80053; 81001; 81025; 83690; 83735; 84145; 85025; 87040; 87081; 87088; 96365; 96367; 99285; G0378; J0131; J0696; J1644; J7030; J7040

== ENCOUNTER 2023-01-28 09:13 | Emergency (ER) | payer BC ==
[~2023-01-28] VITALS: Ht 177.8 cm; Wt 102.3 kg
[~2023-01-28 09:13] MED LIST changes: -CARV-50 PO; -LOSA25TA96 PO; +LOSA50TA64 PO; -SIMV10TA98 PO; +SIMV5TAB58 PO; -VENL37.55 PO; +VENL75CA61 PO
[2023-01-28 09:18] VITALS: BP 156/99
[2023-01-28] MEDS ORDERED: CEPH-585 PO (09:57)
[2023-01-28] MEDS ORDERED: cephalexin 500mg capsule PO ONE (10:00)
== END 2023-01-28 10:09 | disposition home or self-care (01) ==
LOC: ER 09:14
DX: L03.213 Periorbital cellulitis (principal); H00.011 Hordeolum externum right upper eyelid; E78.00 Pure hypercholesterolemia, unspecified; I10 Essential (primary) hypertension; K21.9 Gastro-esophageal reflux disease without esophagitis; E03.9 Hypothyroidism, unspecified; F41.9 Anxiety disorder, unspecified; Z87.442 Personal history of urinary calculi; Z86.73 Personal history of transient ischemic attack (TIA), and cerebral infarction without residual deficits; Z98.890 Other specified postprocedural states; Z90.710 Acquired absence of both cervix and uterus; Z72.89 Other problems related to lifestyle; Z88.8 Allergy status to other drugs, medicaments and biological substances; Z91.040 Latex allergy status; Z79.899 Other long term (current) drug therapy
CPT/HCPCS: 99283

== ENCOUNTER 2023-03-04 17:16 | Inpatient (IN) | payer BC ==
[~2023-03-04] VITALS: Ht 177.8 cm; Wt 100.9 kg
[~2023-03-04 17:16] MED LIST changes: +CEPH-585 PO
[2023-03-04 17:35] LABS: BASOPHILS % (AUTO) 0.7 % (0-1); EOSINOPHILS % (AUTO) 0.5 % (0-6); HEMATOCRIT 47.1 % (35.0-45.0); HEMOGLOBIN 16.3 g/dl (12.0-16.0); LYMPHOCYTES # (AUTO) 1.4 X10'3 (1.1-4.8); LYMPHOCYTES % (AUTO) 25.8 % (21-51); MEAN CORPUSCULAR HEMOGLOBIN 36.9 PG (27.0-31.0); MEAN CORPUSCULAR HGB CONC 34.5 g/dL (33.0-36.5); MEAN CORPUSCULAR VOLUME 106.8 FL (78-98); MEAN PLATELET VOLUME 8.1 FL (7.4-10.4); MONOCYTES # (AUTO) 0.4 X10'3 (0-0.9); MONOCYTES % (AUTO) 7.9 % (2-12); NEUTROPHILS # (AUTO) 3.4 X10'3 (1.8-7.7); NEUTROPHILS % (AUTO) 65.1 % (42-75); PLATELET COUNT 178 X10'3 (140-440); RED BLOOD COUNT 4.41 X10'6 (4.20-5.60); RED CELL DISTRIBUTION WIDTH 12.9 % (11.5-14.5); WHITE BLOOD COUNT 5.3 X10'3 (4.5-11.0)
--- NOTE | 2023-03-04 17:39 | NUR ---
notified charge jose estrada that pt has low bp along with other symp needed next room available.
[2023-03-04 17:49] LABS: ALANINE AMINOTRANSFERASE 145 U/L (12-78); ALBUMIN 3.6 G/DL (3.4-5.0); ALBUMIN/GLOBULIN RATIO 0.9 (1.1-1.5); ALKALINE PHOSPHATASE 91 IU/L (46-116); ANION GAP 10 (8-16); ASPARTATE AMINO TRANSFERASE 158 U/L (10-37); BILIRUBIN,TOTAL 0.3 MG/DL (0.1-1.0); BLOOD UREA NITROGEN 14 MG/DL (7-18); BUN/CREATININE RATIO 14.3 (10.0-20.0); CALCIUM 9.4 MG/DL (8.5-10.1); CHLORIDE 101 MMOL/L (99-107); CREATININE 0.98 MG/DL (0.40-0.90); GLUCOSE 205 MG/DL (70-104); SODIUM 135 MMOL/L (135-145); TOTAL CARBON DIOXIDE 23.8 MMOL/L (24-32); TOTAL PROTEIN 7.5 G/DL (6.4-8.2); eGFR 59 ML/MIN
[2023-03-04 18:17] LABS: POTASSIUM 3.9 MMOL/L (3.5-5.1)
[2023-03-04 18:54] LABS: CLARITY,URINE SLIGHTLY CLOUDY (Clear); COLOR,URINE YELLOW (Yellow); GLUCOSE, URINE NEGATIVE (Neg); KETONES,URINE NEGATIVE (Neg); LEUKOCYTE ESTERASE ,URINE SMALL (Neg); NITRITES, URINE NEGATIVE (Neg); OCCULT BLOOD,URINE MODERATE (Neg); PROTEIN,URINE 100 mg/dl (Neg); UROBILINOGEN,URINE 0.2 E.U/dL (0.2-1.0)
[2023-03-04 18:59] LABS: UA COLLECTION TYPE CLN CATCH MIDSTREAM
[2023-03-04 19:02] LABS: BACTERIA,URINE FEW /HPF (Neg); MUCUS STRANDS FEW /LPF (Neg); SQUAMOUS EPITHELIAL CELL,UR MODERATE /LPF (FEW)
[2023-03-04 19:03] LABS: URIC ACID CRYSTALS FEW /HPF (NEGATIVE)
[2023-03-04] MEDS ORDERED: ipratropium/albuterol 3ml nebule NEB ONE (22:05)
[2023-03-04] MEDS ORDERED: methylPREDNISolone sod succ 125mg/2ml vial IV ONE (22:05)
[2023-03-04] MEDS ORDERED: normal saline 1000ml 1,000 ML IV ONE (22:10)
[2023-03-04] MEDS ORDERED: CefTRIAXone/D5W-Rocephin 1gm 50 ML IV ONE (22:10)
[2023-03-04 22:23] VITALS: PULSE 87; RESP 22; O2SAT 90
[2023-03-04 22:30] VITALS: PULSE 88; RESP 16; O2SAT 88
[2023-03-04] MEDS ORDERED: albuterol 2.5 MG/3 ML nebule CONTNEB PRN (22:35)
[2023-03-04 22:37] VITALS: PULSE 88; RESP 24; O2SAT 90
[2023-03-04 23:46] VITALS: PULSE 92; RESP 16; O2SAT 91
[2023-03-05] VITALS (11 sets, daily range): BP systolic 106–127; BP diastolic 66–72; PULSE 6–87; RESP 16–19; TEMP 97.2–98.2; O2SAT 90–98
[2023-03-05] MEDS ORDERED: azithromycin/NS 500mg/250ml 250 ML IV ONE (00:05)
[2023-03-05] MEDS: normal saline 1000ml 1,000 ML IV SCH ×3 (00:45→23:03)
[2023-03-05] MEDS ORDERED: morphine 2 MG/ML inj. syringe IV PRN (00:45)
[2023-03-05] MEDS ORDERED: ondansetron/PF 4mg/2ml inj IV PRN (00:45)
[2023-03-05] MEDS ORDERED: diphenhydrAMINE 50 mg/ml inj IV PRN (00:45)
[2023-03-05] MEDS ORDERED: acetaminophen 650mg rectal suppository RC PRN (00:45)
[2023-03-05] MEDS ORDERED: diphenhydrAMINE 25mg capsule PO PRN (00:45)
[2023-03-05] MEDS ORDERED: mag hydrox/Alum hydrox/simeth 30ml oral suspension PO PRN (00:45)
[2023-03-05] MEDS ORDERED: bisacodyl 10mg suppository rectal RC PRN (00:45)
[2023-03-05] MEDS ORDERED: ondansetron 4mg rapidly disintigrating tab PO PRN (00:45)
[2023-03-05] MEDS ORDERED: acetaminophen 325mg tablet PO PRN ×2 (00:45)
[2023-03-05] MEDS ORDERED: magnesium hydroxide 30ml (MOM) UD suspension PO PRN (00:45)
[2023-03-05] MEDS ORDERED: HYDROcodone/acetaminophen 5mg/325mg tablet PO PRN (00:45)
[2023-03-05 01:47] LABS: APTT 29 SECONDS (22-32); D-DIMER 0.54 MG/L FEU (0-0.50)
[2023-03-05 01:58] LABS: MAGNESIUM 1.8 MG/DL (1.5-2.4); PHOSPHORUS 4.2 MG/DL (2.3-4.5)
[2023-03-05 02:06] LABS: URINE AMPHETAMINE SCREEN NEGATIVE (Neg); URINE BARBITUATE SCREEN NEGATIVE (Neg); URINE BENZODIAZEPINES SCREEN NEGATIVE (Neg); URINE CANNABINOID SCREEN NEGATIVE (Neg); URINE COCAINE SCREEN NEGATIVE (Neg); URINE METHADONE SCREEN NEGATIVE (Neg); URINE OPIATE SCREEN NEGATIVE (Neg); URINE PHENCYCLIDINE SCREEN NEGATIVE (Neg)
[2023-03-05 02:06] LABS: HEMOGLOBIN A1C 9.5 % (4.5-6.2)
[2023-03-05] MEDS ORDERED: buPROPion 100mg tablet PO SCH (08:00)
[2023-03-05] MEDS ORDERED: methylPREDNISolone sod succ 125mg/2ml vial IV SCH (08:00)
[2023-03-05] MEDS: morphine 2 MG/ML inj. syringe IV PRN ×2 (08:39→13:55)
[2023-03-05] MEDS: docusate sod 100mg capsule PO SCH ×2 (08:39→19:52)
[2023-03-05] MEDS: heparin, porcine 5000 units/ml vial SQ SCH ×2 (08:40→15:15)
--- NOTE | 2023-03-05 08:45 | NUR ---
Dr. Mallory in to see patient. He is aware patient's A1C is 9.5. Patient denies being diabetic and stated, "only borderline." When asked if Dr. Mallory would like to place patient on hypo/hyperglycemic protocol Dr. Mallory stated no.
[2023-03-05] MEDS: guaiFENesin ER 600mg tablet PO SCH ×2 (09:48→19:52)
[2023-03-05] MEDS ORDERED: ALB0.5UD IH (11:52)
[2023-03-05] MEDS ORDERED: pneumococcal 23-VAL P-sac vacc 25 mcg/0.5ml vial IMVAC ONE (15:00)
[2023-03-05] MEDS: methylPREDNISolone sod succ/PF 40mg inj. IV SCH (15:13)
[2023-03-05] MEDS: ipratropium/albuterol 3ml nebule NEB SCH ×3 (15:28→23:44)
--- NOTE | 2023-03-05 18:16 | NUR ---
Problems reprioritized. Patient report given, questions answered & plan of care reviewed with AZAM Mckeon.
--- NOTE | 2023-03-05 18:21 | NUR ---
Problems reprioritized. Patient report given, questions answered & plan of care reviewed with AZAM Trujillo.
[2023-03-05] MEDS: HYDROcodone/acetaminophen 10/325mg tab PO PRN (19:52)
[2023-03-05] MEDS ORDERED: non-formulary drug (Simvastatin* (Zocor*) 1 TAB) PO SCH (21:00)
[2023-03-05] MEDS ORDERED: venlafaxine XR 75mg capsule (Q24H) PO SCH (21:00)
[2023-03-05] MEDS ORDERED: temazepam 15mg capsule PO PRN (21:00)
[2023-03-05] MEDS ORDERED: CefTRIAXone/D5W-Rocephin 1gm 50 ML IV SCH (23:00)
[2023-03-06] VITALS (9 sets, daily range): BP systolic 141–145; BP diastolic 75–76; PULSE 60–76; RESP 16–19; TEMP 96.9–98.4; O2SAT 91–94
[2023-03-06] MEDS ORDERED: azithromycin/NS 500mg/250ml 250 ML IV SCH
[2023-03-06] MEDS: HYDROcodone/acetaminophen 10/325mg tab PO PRN (00:10)
[2023-03-06] MEDS: heparin, porcine 5000 units/ml vial SQ SCH ×2 (00:11→07:37)
[2023-03-06] MEDS: methylPREDNISolone sod succ/PF 40mg inj. IV SCH ×2 (00:12→07:37)
[2023-03-06] MEDS: ipratropium/albuterol 3ml nebule NEB SCH ×3 (03:58→10:57)
--- NOTE | 2023-03-06 05:30 | NUR ---
agree with assessment and charting of JOSE Morin
--- NOTE | 2023-03-06 06:08 | NUR ---
Patient in room [facility]TH[facility] 4023. I have received report from Anil RN and had the opportunity to ask questions and assume patient care.
--- NOTE | 2023-03-06 06:39 | NUR ---
Report given to Farzad NASCIMENTO. Pt hopes to discharge today. Has reduced O2 use, currently on room air
[2023-03-06] MEDS: normal saline 1000ml 1,000 ML IV SCH (06:45)
[2023-03-06 06:50] LABS: BASOPHILS % (AUTO) 0 % (0-1); EOSINOPHILS % (AUTO) 0 % (0-6); HEMATOCRIT 40.4 % (35.0-45.0); HEMOGLOBIN 13.8 g/dl (12.0-16.0); LYMPHOCYTES # (AUTO) 0.6 X10'3 (1.1-4.8); LYMPHOCYTES % (AUTO) 8.6 % (21-51); MEAN CORPUSCULAR HEMOGLOBIN 36.9 PG (27.0-31.0); MEAN CORPUSCULAR HGB CONC 34.2 g/dL (33.0-36.5); MEAN CORPUSCULAR VOLUME 107.7 FL (78-98); MEAN PLATELET VOLUME 8.2 FL (7.4-10.4); MONOCYTES # (AUTO) 0.3 X10'3 (0-0.9); MONOCYTES % (AUTO) 3.8 % (2-12); NEUTROPHILS # (AUTO) 5.9 X10'3 (1.8-7.7); NEUTROPHILS % (AUTO) 87.6 % (42-75); PLATELET COUNT 146 X10'3 (140-440); RED BLOOD COUNT 3.75 X10'6 (4.20-5.60); RED CELL DISTRIBUTION WIDTH 12.6 % (11.5-14.5); WHITE BLOOD COUNT 6.8 X10'3 (4.5-11.0)
[2023-03-06 07:09] LABS: ALANINE AMINOTRANSFERASE 102 U/L (12-78); ALBUMIN 3.1 G/DL (3.4-5.0); ALBUMIN/GLOBULIN RATIO 0.9 (1.1-1.5); ALKALINE PHOSPHATASE 77 IU/L (46-116); ANION GAP 11 (8-16); ASPARTATE AMINO TRANSFERASE 58 U/L (10-37); BILIRUBIN,TOTAL 0.2 MG/DL (0.1-1.0); BLOOD UREA NITROGEN 15 MG/DL (7-18); BUN/CREATININE RATIO 20.3 (10.0-20.0); CALCIUM 8.6 MG/DL (8.5-10.1); CHLORIDE 101 MMOL/L (99-107); CHOLESTEROL 140 MG/DL (0-200); CREATININE 0.74 MG/DL (0.40-0.90); GLUCOSE 373 MG/DL (70-104); HDL CHOLESTEROL 20 MG/DL (35-60); LDL CHOLESTEROL 86 MG/DL (50-100); POTASSIUM 4.8 MMOL/L (3.5-5.1); SODIUM 134 MMOL/L (135-145); TOTAL CARBON DIOXIDE 21.7 MMOL/L (24-32); TOTAL PROTEIN 6.4 G/DL (6.4-8.2); TRIGLYCERIDES 286 MG/DL (20-135); eGFR 82 ML/MIN
[2023-03-06] MEDS: guaiFENesin ER 600mg tablet PO SCH (07:35)
[2023-03-06] MEDS: docusate sod 100mg capsule PO SCH (07:35)
--- NOTE | 2023-03-06 11:52 | NUR ---
Call to Dr. 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 Dr. Gonzalez stated "no patient will be discharged today and will have it checked out outpatient." No new orders.
[2023-03-06] MEDS ORDERED: ADV50250 IH (12:37)
[2023-03-06] MEDS ORDERED: PRED20TA PO (12:37)
[2023-03-06] MEDS ORDERED: CEFD300C3 PO (12:37)
[2023-03-06] MEDS ORDERED: AZIT500T9 PO (12:37)
[2023-03-06] MEDS ORDERED: LACT1CAP55 PO (12:39)
--- NOTE | 2023-03-06 14:02 | NUR ---
Dr. Bird in to see patient and notified patient A1C 9.5. Dr. Bird ordering metformin, test strips, meter strip, lancets and educated patient dx of diabetes.
[2023-03-06] MEDS ORDERED: METF-1203 PO (14:03)
[2023-03-06] MEDS ORDERED: LINA5TAB4 PO (14:03)
--- NOTE | 2023-03-06 14:47 | NUR ---
Diabetes consult: Pt with no prior diabetes hx (prior A1c of 5.6% on 12/16/17) presents with an A1c of 9.5% this admit and BG of 205-373mg/dl for the past two days per EMR. Pt seen at bedside for written/verbal diabetes nutrition education. Pt reports a family hx of diabetes and is familiar with nutrition for diabetics however was excited to refresh her memory with our discussion. 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 RD contact provided and encouraged pt to reach out for any nutrition questions or concern. Will continue to follow. Addendum: 03/06/23 at [address] Amended: Links added.
--- NOTE | 2023-03-06 15:07 | NUR ---
Patient alert and oriented in no apparent acute distress. Discussed with patient discharge instructions and new prescriptions. 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 Patient escorted out by x1 pct. patient drove self to hospital and stated able to drive self home. no pain meds given this shift.
== END 2023-03-06 15:02 | disposition home or self-care (01) | DRG 189 ==
LOC: ER 17:17 → ED HOLD 03-05 00:47 → ORTHO 4S 03-05 08:25
PROVIDERS: ADMIT Family Medicine; ATTEND Family Medicine
PROC: 3E0234Z Introduction of Serum, Toxoid and Vaccine into Muscle, Percutaneous Approach (ICD-10-PCS; principal; 2023-03-05)
DX: J96.01 Acute respiratory failure with hypoxia (principal); I50.32 Chronic diastolic (congestive) heart failure; J44.1 Chronic obstructive pulmonary disease with (acute) exacerbation; N12 Tubulo-interstitial nephritis, not specified as acute or chronic; N17.9 Acute kidney failure, unspecified; E03.9 Hypothyroidism, unspecified; Z20.822 Contact with and (suspected) exposure to COVID-19; E78.00 Pure hypercholesterolemia, unspecified; F41.9 Anxiety disorder, unspecified; K21.9 Gastro-esophageal reflux disease without esophagitis; I95.9 Hypotension, unspecified; R74.01 Elevation of levels of liver transaminase levels; E86.1 Hypovolemia; I11.0 Hypertensive heart disease with heart failure; Z72.0 Tobacco use; Z86.73 Personal history of transient ischemic attack (TIA), and cerebral infarction without residual deficits; Z87.442 Personal history of urinary calculi; Z90.710 Acquired absence of both cervix and uterus; Z98.891 History of uterine scar from previous surgery; Z23 Encounter for immunization; Z88.8 Allergy status to other drugs, medicaments and biological substances; Z91.040 Latex allergy status; Z82.49 Family history of ischemic heart disease and other diseases of the circulatory system; Z81.8 Family history of other mental and behavioral disorders; Z79.899 Other long term (current) drug therapy; Z71.6 Tobacco abuse counseling
CPT/HCPCS: 36415; 71045; 80053; 80061; 80305; 81001; 83036; 83605; 83735; 83880; 84100; 84145; 84484; 85025; 85379; 85610; 85730; 87040; 87088; 87811; 90732; 94640; 94760; 99285; A4615; A7015; G0378; J0456; J0696; J1644; J2270; J2920; J2930; J7030; Q0163

== ENCOUNTER 2023-03-18 05:23 | Emergency (ER) | payer BC ==
[~2023-03-18] VITALS: Ht 177.8 cm; Wt 103.4 kg
[~2023-03-18 05:23] MED LIST changes: +ADV50250 IH; +ALB0.5UD IH; +AZIT500T9 PO; +CEFD300C3 PO; -CEPH-585 PO; +LACT1CAP55 PO; +LINA5TAB4 PO; +METF-1203 PO; +PRED20TA PO
[2023-03-18] MEDS ORDERED: pantoprazole 40 MG vial IV ONE (07:40)
[2023-03-18] MEDS ORDERED: ketorolac tromethamine 15mg/ml inj. IM ONE (07:40)
[2023-03-18] MEDS ORDERED: normal saline 1000ML IV soln IVB ONE (07:40)
[2023-03-18] MEDS ORDERED: ondansetron/PF 4mg/2ml inj IV ONE (07:40)
[2023-03-18] MEDS ORDERED: morphine 4 MG/ML inj SYRINge IV ONE (07:40)
[2023-03-18] MEDS ORDERED: iohexol 300mg/ml 100ml inj. ONE (07:46)
[2023-03-18] MEDS ORDERED: pantoprazole 40MG/NS 100ML BAG 100 ML IV ONE (08:00)
[2023-03-18 08:15] LABS: BASOPHILS # (AUTO) 0.1 X10'3 (0-0.2); BASOPHILS % (AUTO) 0.5 % (0-1); EOSINOPHILS # (AUTO) 0.1 X10'3 (0-0.9); EOSINOPHILS % (AUTO) 0.4 % (0-6); HEMATOCRIT 42.6 % (35.0-45.0); HEMOGLOBIN 14.7 g/dl (12.0-16.0); LYMPHOCYTES # (AUTO) 2.5 X10'3 (1.1-4.8); LYMPHOCYTES % (AUTO) 18.1 % (21-51); MEAN CORPUSCULAR HEMOGLOBIN 36.9 PG (27.0-31.0); MEAN CORPUSCULAR HGB CONC 34.4 g/dL (33.0-36.5); MEAN CORPUSCULAR VOLUME 107.3 FL (78-98); MEAN PLATELET VOLUME 8.1 FL (7.4-10.4); MONOCYTES # (AUTO) 0.9 X10'3 (0-0.9); MONOCYTES % (AUTO) 6.2 % (2-12); NEUTROPHILS # (AUTO) 10.2 X10'3 (1.8-7.7); NEUTROPHILS % (AUTO) 74.8 % (42-75); PLATELET COUNT 206 X10'3 (140-440); RED BLOOD COUNT 3.97 X10'6 (4.20-5.60); RED CELL DISTRIBUTION WIDTH 12.7 % (11.5-14.5); WHITE BLOOD COUNT 13.7 X10'3 (4.5-11.0)
[2023-03-18 08:21] LABS: URINE HCG NEGATIVE (NEG)
[2023-03-18 08:31] LABS: BILIRUBIN,URINE NEGATIVE (Neg); CLARITY,URINE SLIGHTLY CLOUDY (Clear); COLOR,URINE YELLOW (Yellow); GLUCOSE, URINE >=1000 mg/dl (Neg); KETONES,URINE NEGATIVE (Neg); LEUKOCYTE ESTERASE ,URINE NEGATIVE (Neg); NITRITES, URINE NEGATIVE (Neg); OCCULT BLOOD,URINE SMALL (Neg); PH,URINE 5.5 (4.8-8.0); PROTEIN,URINE NEGATIVE (Neg); UA COLLECTION TYPE CLN CATCH MIDSTREAM; UROBILINOGEN,URINE 0.2 E.U/dL (0.2-1.0)
[2023-03-18 08:36] LABS: URINE AMPHETAMINE SCREEN NEGATIVE (Neg); URINE BARBITUATE SCREEN NEGATIVE (Neg); URINE BENZODIAZEPINES SCREEN NEGATIVE (Neg); URINE CANNABINOID SCREEN NEGATIVE (Neg); URINE COCAINE SCREEN NEGATIVE (Neg); URINE METHADONE SCREEN NEGATIVE (Neg); URINE OPIATE SCREEN NEGATIVE (Neg); URINE PHENCYCLIDINE SCREEN NEGATIVE (Neg)
[2023-03-18 08:53] LABS: ALANINE AMINOTRANSFERASE 104 U/L (12-78); ALBUMIN 3.4 G/DL (3.4-5.0); ALBUMIN/GLOBULIN RATIO 0.9 (1.1-1.5); ALKALINE PHOSPHATASE 98 IU/L (46-116); ANION GAP 10 (8-16); ASPARTATE AMINO TRANSFERASE 28 U/L (10-37); BILIRUBIN,TOTAL 0.4 MG/DL (0.1-1.0); BLOOD UREA NITROGEN 10 MG/DL (7-18); BUN/CREATININE RATIO 14.1 (10.0-20.0); CALCIUM 9.2 MG/DL (8.5-10.1); CHLORIDE 103 MMOL/L (99-107); CREATININE 0.71 MG/DL (0.40-0.90); GLUCOSE 289 MG/DL (70-104); POTASSIUM 4.3 MMOL/L (3.5-5.1); SODIUM 137 MMOL/L (135-145); TOTAL PROTEIN 7.3 G/DL (6.4-8.2); eCRCL 98 ML/MIN; eGFR 86 ML/MIN
[2023-03-18 08:57] LABS: SQUAMOUS EPITHELIAL CELL,UR MODERATE /LPF (FEW)
[2023-03-18 08:59] LABS: LIPASE 239 U/L (73-393); MAGNESIUM 2.1 MG/DL (1.5-2.4)
[2023-03-18 08:59] LABS: BACTERIA,URINE FEW /HPF (Neg); YEAST FEW /HPF (NEGATIVE)
[2023-03-18 09:01] LABS: RBC,URINE 0-2 /HPF (0-2); WBC,URINE 0-4 /HPF (0-4)
[2023-03-18 09:01] LABS: APTT 27 SECONDS (22-32); PROTHROMBIN TIME 9.5 SECONDS (9.0-12.0)
[2023-03-18 09:17] LABS: INR 0.9 INR
[2023-03-18 11:31] VITALS: BP 111/73; PULSE 74; TEMP 98.3; O2SAT 95
[2023-03-18] MEDS ORDERED: METO-292 PO (15:44)
[2023-03-18] MEDS ORDERED: DICY10CA88 PO (15:44)
[2023-03-18] MEDS ORDERED: PANT-47 PO (15:44)
--- NOTE | 2023-03-18 16:21 | NUR ---
Received patient in [facility].
[2023-03-18 16:38] VITALS: RESP 18
== END 2023-03-19 06:51 | disposition home or self-care (01) ==
LOC: ER 05:23
DX: J44.9 Chronic obstructive pulmonary disease, unspecified (principal); K21.9 Gastro-esophageal reflux disease without esophagitis; E03.9 Hypothyroidism, unspecified; E78.5 Hyperlipidemia, unspecified; E78.00 Pure hypercholesterolemia, unspecified; I10 Essential (primary) hypertension; Z88.8 Allergy status to other drugs, medicaments and biological substances; Z91.040 Latex allergy status; Z79.1 Long term (current) use of non-steroidal anti-inflammatories (NSAID); Z79.2 Long term (current) use of antibiotics; Z79.899 Other long term (current) drug therapy; Z90.710 Acquired absence of both cervix and uterus; Z98.890 Other specified postprocedural states
CPT/HCPCS: 36415; 71045; 74177; 76700; 80053; 80305; 81001; 81025; 83690; 83735; 84484; 85025; 85610; 85730; 93005; 96365; 96366; 96372; 96375; 99285; C9113; J1885; J2270; J2405; J3490; J7030; Q9967

== ENCOUNTER 2023-10-01 10:42 | Emergency (ER) | payer BC ==
[~2023-10-01] VITALS: Ht 177.8 cm; Wt 94.9 kg
[~2023-10-01 10:42] MED LIST changes: -ADV50250 IH; -CEFD300C3 PO; +DICY10CA88 PO; -METF-1203 PO; +METO-292 PO; +PANT-47 PO; -PRED20TA PO
[2023-10-01] MEDS: normal saline 1000ML IV soln IVB ONE (11:15)
[2023-10-01] MEDS: ondansetron/PF 4mg/2ml inj IV ONE (11:15)
[2023-10-01 11:18] LABS: BASOPHILS # (AUTO) 0.2 X10'3 (0-0.2); BASOPHILS % (AUTO) 1.2 % (0-1); EOSINOPHILS # (AUTO) 0.1 X10'3 (0-0.9); EOSINOPHILS % (AUTO) 0.6 % (0-6); HEMATOCRIT 49.4 % (35.0-45.0); HEMOGLOBIN 17.3 g/dl (12.0-16.0); LYMPHOCYTES # (AUTO) 1.7 X10'3 (1.1-4.8); LYMPHOCYTES % (AUTO) 11.9 % (21-51); MEAN CORPUSCULAR HEMOGLOBIN 37.2 PG (27.0-31.0); MEAN CORPUSCULAR HGB CONC 34.9 g/dL (33.0-36.5); MEAN CORPUSCULAR VOLUME 106.7 FL (78-98); MEAN PLATELET VOLUME 7.5 FL (7.4-10.4); MONOCYTES # (AUTO) 0.6 X10'3 (0-0.9); NEUTROPHILS # (AUTO) 11.7 X10'3 (1.8-7.7); NEUTROPHILS % (AUTO) 82.3 % (42-75); PLATELET COUNT 317 X10'3 (140-440); RED BLOOD COUNT 4.63 X10'6 (4.20-5.60); RED CELL DISTRIBUTION WIDTH 12.8 % (11.5-14.5); WHITE BLOOD COUNT 14.2 X10'3 (4.5-11.0)
[2023-10-01 11:27] LABS: ALBUMIN 4.5 G/DL (3.4-5.0); AMYLASE 39 U/L (25-115); BLOOD UREA NITROGEN 11 MG/DL (7-18); BUN/CREATININE RATIO 10.2 (10.0-20.0); CALCIUM 9.5 MG/DL (8.5-10.1); CREATININE 1.08 MG/DL (0.40-0.90); GLUCOSE 129 MG/DL (70-104); LIPASE 47 U/L (16-77); SODIUM 143 MMOL/L (135-145); TOTAL CARBON DIOXIDE 24.9 MMOL/L (24-32); eCRCL 64 ML/MIN; eGFR 53 ML/MIN
[2023-10-01 11:30] LABS: ANION GAP 12 (8-16); CHLORIDE 106 MMOL/L (99-107)
[2023-10-01 12:13] VITALS: TEMP 98.2
[2023-10-01 14:13] LABS: ALANINE AMINOTRANSFERASE 49 U/L (12-78); ALBUMIN/GLOBULIN RATIO 1.1 (1.1-1.5); ALKALINE PHOSPHATASE 99 IU/L (46-116); ASPARTATE AMINO TRANSFERASE 34 U/L (10-37); BILIRUBIN,DIRECT 0.2 MG/DL (0-0.3); BILIRUBIN,TOTAL 0.7 MG/DL (0.1-1.0); TOTAL PROTEIN 8.5 G/DL (6.4-8.2)
[2023-10-01] MEDS: morphine 2 MG/ML inj. syringe IV PRN (14:47)
[2023-10-01] MEDS ORDERED: ONDA4TAB12 PO (15:31)
[2023-10-01 16:34] VITALS: BP 112/62; PULSE 90; RESP 18; O2SAT 95
== END 2023-10-01 16:46 | disposition home or self-care (01) ==
LOC: ER 10:43
DX: R11.2 Nausea with vomiting, unspecified (principal); R19.7 Diarrhea, unspecified; E78.00 Pure hypercholesterolemia, unspecified; I10 Essential (primary) hypertension; J44.9 Chronic obstructive pulmonary disease, unspecified; K21.9 Gastro-esophageal reflux disease without esophagitis; E03.9 Hypothyroidism, unspecified; F41.9 Anxiety disorder, unspecified; Z88.8 Allergy status to other drugs, medicaments and biological substances; Z79.899 Other long term (current) drug therapy; Z91.040 Latex allergy status
CPT/HCPCS: 36415; 71045; 76700; 80048; 80076; 82150; 83690; 85025; 96361; 96374; 96375; 99285; J2270; J2405; J7030

== ENCOUNTER 2023-11-27 09:57 | Emergency (ER) | payer BC ==
[~2023-11-27] VITALS: Ht 172.7 cm; Wt 97.2 kg
[~2023-11-27 09:57] MED LIST changes: +ONDA4TAB12 PO
[2023-11-27 10:29] VITALS: TEMP 98
[2023-11-27 11:21] LABS: BASOPHILS % (AUTO) 0.2 % (0-1); EOSINOPHILS # (AUTO) 0.1 X10'3 (0-0.9); EOSINOPHILS % (AUTO) 0.5 % (0-6); HEMATOCRIT 45.2 % (35.0-45.0); HEMOGLOBIN 15.3 g/dl (12.0-16.0); LYMPHOCYTES # (AUTO) 1.6 X10'3 (1.1-4.8); LYMPHOCYTES % (AUTO) 10.2 % (21-51); MEAN CORPUSCULAR HEMOGLOBIN 36.2 PG (27.0-31.0); MEAN CORPUSCULAR HGB CONC 33.9 g/dL (33.0-36.5); MEAN CORPUSCULAR VOLUME 106.9 FL (78-98); MEAN PLATELET VOLUME 7.1 FL (7.4-10.4); MONOCYTES % (AUTO) 6.2 % (2-12); NEUTROPHILS # (AUTO) 13.3 X10'3 (1.8-7.7); NEUTROPHILS % (AUTO) 82.9 % (42-75); PLATELET COUNT 266 X10'3 (140-440); RED BLOOD COUNT 4.22 X10'6 (4.20-5.60); RED CELL DISTRIBUTION WIDTH 12.7 % (11.5-14.5)
[2023-11-27 11:28] LABS: BILIRUBIN,URINE NEGATIVE (Neg); CLARITY,URINE CLEAR (Clear); COLOR,URINE YELLOW (Yellow); GLUCOSE, URINE NEGATIVE (Neg); KETONES,URINE NEGATIVE (Neg); LEUKOCYTE ESTERASE ,URINE NEGATIVE (Neg); NITRITES, URINE NEGATIVE (Neg); OCCULT BLOOD,URINE MODERATE (Neg); PH,URINE 5.5 (4.8-8.0); PROTEIN,URINE NEGATIVE (Neg); UA COLLECTION TYPE CLN CATCH MIDSTREAM; UROBILINOGEN,URINE 0.2 E.U/dL (0.2-1.0)
[2023-11-27 11:31] LABS: URINE HCG NEGATIVE (NEG)
[2023-11-27 11:36] LABS: BACTERIA,URINE 4+ /HPF (Neg); SQUAMOUS EPITHELIAL CELL,UR NONE SEEN /LPF (FEW)
[2023-11-27 11:45] LABS: ALANINE AMINOTRANSFERASE 32 U/L (12-78); ALBUMIN 3.9 G/DL (3.4-5.0); ALKALINE PHOSPHATASE 90 IU/L (46-116); ANION GAP 11 (8-16); ASPARTATE AMINO TRANSFERASE 20 U/L (10-37); BILIRUBIN,TOTAL 0.4 MG/DL (0.1-1.0); BLOOD UREA NITROGEN 10 MG/DL (7-18); BUN/CREATININE RATIO 13.3 (10.0-20.0); CALCIUM 9.1 MG/DL (8.5-10.1); CHLORIDE 104 MMOL/L (99-107); CREATININE 0.75 MG/DL (0.40-0.90); GLUCOSE 92 MG/DL (70-104); POTASSIUM 3.8 MMOL/L (3.5-5.1); SODIUM 140 MMOL/L (135-145); TOTAL CARBON DIOXIDE 25.4 MMOL/L (24-32); TOTAL PROTEIN 7.9 G/DL (6.4-8.2); eCRCL 86 ML/MIN; eGFR 80 ML/MIN
[2023-11-27 12:01] LABS: LIPASE 80 U/L (16-77)
[2023-11-27 12:51] VITALS: BP 140/99; PULSE 89; O2SAT 94
[2023-11-27] MEDS ORDERED: ketorolac trometh. 30mg/ml inj. IV ONE (13:05)
[2023-11-27] MEDS: CefTRIAXone 2gm/D5W 50ml BAG 50 ML IV ONE (13:11)
[2023-11-27] MEDS: normal saline 1000ML IV soln IVB ONE (13:11)
[2023-11-27] MEDS: ondansetron/PF 4mg/2ml inj IV ONE (13:16)
[2023-11-27 13:17] VITALS: RESP 18
[2023-11-27] MEDS: ketorolac tromethamine 15mg/ml inj. IV ONE (13:17)
[2023-11-27] MEDS ORDERED: ONDA4TAB12 PO (13:30)
[2023-11-27] MEDS ORDERED: CEFU250T95 PO (13:30)
== END 2023-11-27 15:20 | disposition home or self-care (01) ==
LOC: ER 09:57
DX: N10 Acute pyelonephritis (principal); I10 Essential (primary) hypertension; Z86.73 Personal history of transient ischemic attack (TIA), and cerebral infarction without residual deficits; E78.00 Pure hypercholesterolemia, unspecified; K21.9 Gastro-esophageal reflux disease without esophagitis; E03.9 Hypothyroidism, unspecified; F41.9 Anxiety disorder, unspecified; Z87.442 Personal history of urinary calculi; Z72.89 Other problems related to lifestyle; Z98.890 Other specified postprocedural states; Z90.710 Acquired absence of both cervix and uterus; Z88.8 Allergy status to other drugs, medicaments and biological substances; Z91.040 Latex allergy status; Z79.899 Other long term (current) drug therapy; Z79.2 Long term (current) use of antibiotics
CPT/HCPCS: 36415; 80053; 81001; 81025; 83690; 85025; 87077; 87088; 87186; 96365; 96375; 99284; J0696; J1885; J2405; J7030

== ENCOUNTER 2024-07-02 23:42 | Emergency (ER) | payer BC ==
[~2024-07-02] VITALS: Ht 170.2 cm; Wt 97.7 kg
[~2024-07-02 23:42] MED LIST changes: +ONDA-243 PO; -ONDA4TAB12 PO
[2024-07-02 23:46] VITALS: BP 116/71; PULSE 79; O2SAT 95
[2024-07-03 00:22] VITALS: RESP 18
[2024-07-03] MEDS: HYDROcodone/acetaminophen 5mg/325mg tablet PO ONE (00:22)
[2024-07-03] MEDS ORDERED: HYDR-3965 PO (00:24)
[2024-07-03 00:48] VITALS: TEMP 97.6
== END 2024-07-03 00:50 | disposition home or self-care (01) ==
LOC: ER 23:43
DX: S83.91XA Sprain of unspecified site of right knee, initial encounter (principal); J44.9 Chronic obstructive pulmonary disease, unspecified; I11.0 Hypertensive heart disease with heart failure; I50.9 Heart failure, unspecified; K21.9 Gastro-esophageal reflux disease without esophagitis; E78.00 Pure hypercholesterolemia, unspecified; E03.9 Hypothyroidism, unspecified; Z88.8 Allergy status to other drugs, medicaments and biological substances; Z91.040 Latex allergy status; Z87.440 Personal history of urinary (tract) infections; Z90.710 Acquired absence of both cervix and uterus; X58.XXXA Exposure to other specified factors, initial encounter; Y93.72 Activity, wrestling; Y92.89 Other specified places as the place of occurrence of the external cause; Y99.8 Other external cause status
CPT/HCPCS: 29505; 73564; 99283

== ENCOUNTER 2024-12-31 12:32 | Inpatient (IN) | payer BC ==
[~2024-12-31] VITALS: Ht 177.8 cm; Wt 98.1 kg
--- NOTE | 2024-12-31 12:39 | ELECTROCARDIOGRAPH REPORT ---
[facility] Test Date: 2024-12-31 Test Time: 12:34:57 Pat Name: GRADY ZUÑIGA Department: EMERGENCY ROOM Room: [place] [address] Gender: F Glass Vial Filler: : 1970 Requested By: SENIA CALIX Order Number: [id number] Reading MD: Dr. Augustin Ghotra Measurements Intervals [place] Rate: 75 P: 61 SC: 125 QRS: 92 QRSD: 94 T: 84 QT: 385 QTc: 430 Interpretive Statements Age not entered, assumed to be 48 years old for purpose of ECG interpretation Sinus rhythm Borderline right axis deviation Electronically Signed On 01-01-2025 11:01:[address] Augustin Ghotra Please click the below link to view image of tracing.
--- NOTE | 2024-12-31 12:48 | Physician Documentation ---
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 Patient reports history of minor heart attack that she received a catheterization for, stating they found a partial blockage though not significant enough to warrant a stent, patient reports pain is similar to that episode. Medication Reconciliation Allergies: Coded Allergies: lisinopril (Verified Allergy, Intermediate, cough, 07/02/24) atorvastatin calcium (Verified Allergy, Unknown, 07/02/24) latex (Verified Allergy, Unknown, 07/02/24) Scheduled L. Rhamnosus GG/Inulin (Culturelle Capsule), 1 CAP PO DAILY Losartan Potassium (Losartan Potassium), 1 TAB PO DAILY, (Reported) Metformin HCl (Metformin HCl), 1 TAB PO DAILY, (Reported) ONDANSETRON ODT 4mg tablet (Ondansetron Odt), 4 MG PO Q6H Simvastatin (Simvastatin), 10 MG PO DAILY, (Reported) Venlafaxine Hcl (Venlafaxine Hcl Er), 1 CAP PO DAILY, (Reported) Scheduled PRN Albuterol Sulfate Nebs* (Proventil Nebs*), 2.5 MG IH Q4H PRN for SOB or wheezin g, (Reported) Miscellaneous Medications Semaglutide (Ozempic), 2 MG PO, (Reported) Discontinued Medications Azithromycin (Azithromycin), 1 TAB PO DAILY Discontinued Reason: patient no longer taking Dicyclomine Hcl* (Bentyl*), 1 CAP PO TID Discontinued Reason: patient no longer taking Linagliptin (Tradjenta), 1 TAB PO DAILY Discontinued Reason: patient no longer taking Metoclopramide HCl (Reglan), 1 TAB PO Q8H Discontinued Reason: patient no longer taking ONDANSETRON ODT 4mg tablet (Ondansetron Odt), 1 TABLET PO Q6H PRN for nausea/vomiting Discontinued Reason: patient no longer taking Pantoprazole Sodium (PROTONIX tablet), 40 MG PO DAILY Discontinued Reason: patient no longer taking Simvastatin* (Zocor*), 1 TAB PO HS, (Reported) Discontinued Reason: patient no longer taking Past Medical History Past Medical History: CVA/TIA/Stroke, High Cholesterol, Hypertension, COPD, Pneumonia, GERD, Kidney Stones, UTI, Hypothyroidism, Extremity Fracture, Anxiety Past Surgical History: , hysterectomy, orthopedic surgeries Other Past Surgical History: Bladder sling Patient History: (CHF) Congestive heart failure FATHER (DM Type1) Diabetes mellitus type 1 FATHER MOTHER FH: bipolar disorder MOTHER FH: schizophrenia MOTHER Hypercholesterolemia FATHER Hypertension FATHER MOTHER PULMONARY ARTERY DISEASE FATHER Peripheral arterial disease FATHER Alcohol Use: Occasionally Drug Use: none Lives with: Family Lives In: Home Occupation: employed Review of Systems ROS Left-sided chest pain radiating to left neck as stated above in the HPI, otherwise all systems are reviewed and negative. Physical Exam Physical Exam VITALS: Reviewed and as above. GENERAL: Alert, nontoxic appearing, no apparent distress. RESPIRATORY: No increased work of breathing, no respiratory distress, speaking in full clear sentences, lung sounds clear in all tellez CV: Regular rate and rhythm no murmur BACK: No CVA tenderness GI: Nondistended, soft, nontender, no guarding, no rigidity, bowel sounds present MUSCULOSKELETAL: SKIN: Warm and dry Progress Progress Note 1607 I spoke with hospitalist resident Dr. Siddiqui, who kindly accepts patient for admission Results/Orders Results/Orders Orders - LILIANA KING Hospitalist (12/31/24 16:00) Fill Out Med Reconciliation (12/31/24 16:00) Nitroglycerin Sublingual Tab (Nitrostat (12/31/24 16:05) Completed Orders - LILIANA KING Aspirin 81mg Chew Tablet (Aspirin 81mg C (12/31/24 16:00) Vital Signs 12/31/24 12/31/24 12/31/24 12:42 15:54 15:55 Temp 97.1 Pulse 77 66 Resp 18 14 12 B/P (MAP) 134/72 144/101 (115) Pulse Ox 95 97 O2 Flow Rate 0 0 Laboratory Tests Test 12/31/24 12:41 12/31/24 14:11 12/31/24 15:49 White Blood Count 10.2 Red Blood Count 3.82 L Hemoglobin 14.1 Hematocrit 40.3 Mean Corpuscular Volume 105.6 H Mean Corpuscular Hemoglobin 37.0 H Mean Corpuscular Hemoglobin Concent 35.1 Red Cell Distribution Width 13.1 Platelet Count 265 Mean Platelet Volume 7.4 Neutrophils (%) (Auto) 68.1 Lymphocytes (%) (Auto) 25.5 Monocytes (%) (Auto) 4.8 Eosinophils (%) (Auto) 1.1 Basophils (%) (Auto) 0.5 Neutrophils # (Auto) 6.9 Lymphocytes # (Auto) 2.6 Monocytes # (Auto) 0.5 Eosinophils # (Auto) 0.1 Basophils # (Auto) 0.0 CBC Comment Sodium Level 140 Potassium Level 4.3 Chloride Level 109 H Carbon Dioxide Level 24.3 Anion Gap 7 L Blood Urea Nitrogen 14 Creatinine 0.91 H Estimated GFR/1.73 m2 64 BUN/Creatinine Ratio 15.4 Glucose Level 130 H Hemoglobin A1c 5.3 Calcium Level 8.9 Total Bilirubin 0.3 Aspartate Amino Transf (AST/SGOT) 18 Alanine Aminotransferase (ALT/SGPT) 32 Alkaline Phosphatase 79 Troponin I High Sensitivity 7 9 11 Pro-B-Type Natriuretic Peptide 93 Total Protein 7.0 Albumin 3.9 Globulin 3.1 Albumin/Globulin Ratio 1.3 Chemistry Comments Troponin I High Sens Percent Delta 28 22 Troponin I Hi Sens Absolute Change 2 2 EKG/XRAY/CT/US/VASC/MRI EKG : Additional Comment EKG at 12:34 interpreted by myself as sinus rhythm at a rate of 75, borderline right axis deviation, no ST segment elevation or depression Chest X-Ray : Additional Comments CHEST RADIOGRAPH Indication: CP Technique: Single frontal view of the chest was obtained COMPARISON: DI CHEST,SINGLE VIEW on DOS: 10/01/23, DI CHEST,SINGLE VIEW on DOS: 03/18/23, DI CHEST,SINGLE VIEW on DOS: 03/04/23 FINDINGS: Lines and Tubes: None Lungs: Clear Pleura: No effusion. No pneumothorax. Cardiomediastinal contours: Unremarkable Bones: Unremarkable IMPRESSION: No acute disease. Electronically Signed by:KYLER OCAMPO MD Date & Time: 12/31/24 1300 Dictated by: KYLER OCAMPO MD Dictation date and time: 12/31/24 124 I have reviewed and agree with the radiology report. I have reviewed and interpreted the imaging as: No focal consolidation or pneumothorax Heart Score: Heart Score Response (Comments) Value History Highly Suspicious 2 EKG Normal 0 Age 45-64 1 Risk Factors >3 or Hx ASHD 2 Troponin Normal limit 0 Total 5 Medical Decision Making Findings This 54-year-old female with history of previous cardiac episode and hypertension presented with left-sided chest pain radiating to her left neck and jaw. Given similarity to previous cardiac episode and patient's risk factors despite normal EKG and normal troponins her heart score is five and she would benefit from admission for further monitoring evaluation risk stratification. Patient was hemodynamically stable and pain well controlled in the department, remainder of physical exam benign. Hospitalist team contacted and kindly accepts patient for admission. 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 Patient reports elevated blood pressure as well. Patient has HTN which she takes medications for. Patient describes symptoms as an "anxiety attack." Patient reports known anxiety disorder. Patient is on effexor for anxiety and has not missed any dosages. Since getting to ER states anxiety and chest pain have "calmed down." Heart cath in 2010 but states "artery was not blocked enough to put a stent in" Last stress test was 2years ago. PEX: sitting comfortable in triage, NAD, blood pressure normal. Not diaphoretic. affect congruent with mood A/P: 1. Chest pain-EKG shows no acute ST changes, chest pain protocol placed by triage nurse, patient appears stable. 2. HTN 3. Anxiety The note accurately reflects work and decisions made by me.Jany ROOT 12/31/24 12:46 Signature Scribe Signature: No scribe Attestation: The note accurately reflects work and decisions made by me.JASPER Rey 01/01/25 01:16 JANY PEREZ December 31, 2024 12:48 LILIANA KING December 31, 2024 16:00
[2024-12-31 12:58] LABS: BASOPHILS % (AUTO) 0.5 % (0-1); EOSINOPHILS # (AUTO) 0.1 X10'3 (0-0.9); EOSINOPHILS % (AUTO) 1.1 % (0-6); HEMATOCRIT 40.3 % (35.0-45.0); HEMOGLOBIN 14.1 g/dl (12.0-16.0); LYMPHOCYTES # (AUTO) 2.6 X10'3 (1.1-4.8); LYMPHOCYTES % (AUTO) 25.5 % (21-51); MEAN CORPUSCULAR HGB CONC 35.1 g/dL (33.0-36.5); MEAN CORPUSCULAR VOLUME 105.6 FL (78-98); MEAN PLATELET VOLUME 7.4 FL (7.4-10.4); MONOCYTES # (AUTO) 0.5 X10'3 (0-0.9); MONOCYTES % (AUTO) 4.8 % (2-12); NEUTROPHILS # (AUTO) 6.9 X10'3 (1.8-7.7); NEUTROPHILS % (AUTO) 68.1 % (42-75); PLATELET COUNT 265 X10'3 (140-440); RED BLOOD COUNT 3.82 X10'6 (4.20-5.60); RED CELL DISTRIBUTION WIDTH 13.1 % (11.5-14.5); WHITE BLOOD COUNT 10.2 X10'3 (4.5-11.0)
--- NOTE | 2024-12-31 13:02 | RADIOLOGY REPORT ---
CHEST RADIOGRAPH Indication: CP Technique: Single frontal view of the chest was obtained COMPARISON: DI CHEST,SINGLE VIEW on DOS: 10/01/23, DI CHEST,SINGLE VIEW on DOS: 03/18/23, DI CHEST,SING LE VIEW on DOS: 03/04/23 FINDINGS: Lines and Tubes: None Lungs: Clear Pleura: No effusion. No pneumothorax. Cardiomediastinal contours: Unremarkable Bones: Unremarkable IMPRESSION: No acute disease.
[2024-12-31 13:12] LABS: ALANINE AMINOTRANSFERASE 32 U/L (12-78); ALBUMIN 3.9 G/DL (3.4-5.0); ALBUMIN/GLOBULIN RATIO 1.3 (1.1-1.5); ALKALINE PHOSPHATASE 79 IU/L (46-116); ANION GAP 7 (8-16); ASPARTATE AMINO TRANSFERASE 18 U/L (10-37); BILIRUBIN,TOTAL 0.3 MG/DL (0.1-1.0); BLOOD UREA NITROGEN 14 MG/DL (7-18); BUN/CREATININE RATIO 15.4 (10.0-20.0); CALCIUM 8.9 MG/DL (8.5-10.1); CHLORIDE 109 MMOL/L (99-107); CREATININE 0.91 MG/DL (0.40-0.90); GLUCOSE 130 MG/DL (70-104); POTASSIUM 4.3 MMOL/L (3.5-5.1); SODIUM 140 MMOL/L (135-145); TOTAL CARBON DIOXIDE 24.3 MMOL/L (24-32); eCRCL 75 ML/MIN; eGFR 64 ML/MIN
[2024-12-31 13:19] LABS: PRO BRAIN NATRIURETIC PEPTIDE 93 PG/ML (0-125)
[2024-12-31] MEDS: aspirin 81mg tab.chew PO ONE (16:37)
[2024-12-31] MEDS: nitroGLYCERIN 0.4mg SUBLingual tab SL PRN (16:39)
[2024-12-31] MEDS ORDERED: magnesium hydroxide 30ml (MOM) UD suspension PO PRN (17:05)
[2024-12-31] MEDS ORDERED: mag hydrox/Alum hydrox/simeth 30ml oral suspension PO PRN (17:05)
[2024-12-31] MEDS ORDERED: acetaminophen 325mg tablet PO PRN ×2 (17:05)
[2024-12-31] MEDS ORDERED: ondansetron/PF 4mg/2ml inj IV PRN (17:05)
[2024-12-31] MEDS ORDERED: potassium Cl 40MEQ/1/2NS 520ml 520 ML IV PRN (17:05)
[2024-12-31] MEDS ORDERED: magnesium sulf-water 4G/100mL 100 ML IV PRN (17:05)
[2024-12-31] MEDS ORDERED: morphine 2 MG/ML inj. syringe IV PRN ×2 (17:05)
[2024-12-31] MEDS ORDERED: potassium Cl 20 mEq SR tablet PO PRN ×2 (17:05)
[2024-12-31] MEDS ORDERED: magnesium Cl slow-release 64mg tablet PO PRN (17:05)
[2024-12-31] MEDS ORDERED: magnesium sulf-water 2g/50mL 50 ML IV PRN (17:05)
[2024-12-31] MEDS: normal saline 1000ml 1,000 ML IV SCH (17:21)
--- NOTE | 2024-12-31 17:24 | HISTORY AND PHYSICAL-Residence ---
History & Physical Providers to CC Resident Creating Document: HAMMAD ISSA RES ~ History of Present Illness Primary Medical Doctor: 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 The patient reports that she had symptoms of chest tightness, shortness of breath and diaphoresis that was intermittent, lasted for a few minutes and returned soon after. 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 NTG in the ER relieved her chest pain. She has had no prior similar episodes. In 2010, she had one such episode and heart catheterization was performed by Dr. Carrasquillo and found a small nonobstructive coronary artery disease that was not in the stage requiring stent. Since then, she has been followed by Dr. Carrasquillo, her last echocardiogram was one year ago and her last stress test was two years ago. As with the patient, no significant findings were notable. Allergies: Coded Allergies: lisinopril (Verified Allergy, Intermediate, cough, 07/02/24) atorvastatin calcium (Verified Allergy, Unknown, 07/02/24) latex (Verified Allergy, Unknown, 07/02/24) Home Medications Home Medications Active Ondansetron Odt (Ondansetron HCl) 4 Mg Tab.rapdis 1 Tablet PO Q6H PRN Ondansetron Odt (Ondansetron HCl) 4 Mg Tab.rapdis 4 Mg PO Q6H 5 Days Bentyl* (Dicyclomine HCl) 10 Mg Capsule 1 Cap PO TID Reglan (Metoclopramide HCl) 10 Mg Tablet 1 Tab PO Q8H 30 Days before food and bedtime PROTONIX tablet (Pantoprazole Sodium) 40 Mg Tablet.dr 40 Mg PO DAILY Tradjenta (Linagliptin) 5 Mg Tablet 1 Tab PO DAILY 30 Days Culturelle Capsule (L. Rhamnosus GG/Inulin) 10 Billion Cell-200 Mg Cap.sprink 1 Cap PO DAILY 30 Days Azithromycin 500 Mg Tablet 1 Tab PO DAILY 1 Days Take 1 tablet on 03/07/2023 and then stop. Reported Proventil Nebs* (Albuterol) 2.5 Mg/0.5 Ml Vial.neb 2.5 Mg IH Q4H PRN Venlafaxine Hcl Er (Venlafaxine Hcl) 75 Mg Cap.sr.24h 1 Cap PO DAILY 30 Days Zocor* (Simvastatin) 5 Mg Tablet 1 Tab PO HS 30 Days Losartan Potassium 50 Mg Tablet 1 Tab PO DAILY 30 Days Past Medical History Past Medical History CAD- on aspirin and simvastatin Hypertension- on losartan Oid-ggssltm-nvdbqvhzm type 2 diabetes mellitus- metformin 500 mg HS Obesity- on Ozempic Anxiety Past Surgical History Surgical History Comment Multiple orthopedic surgical history Two C sections Family History Family History: (CHF) Congestive heart failure FATHER (DM Type1) Diabetes mellitus type 1 FATHER MOTHER FH: bipolar disorder MOTHER FH: schizophrenia MOTHER Hypercholesterolemia FATHER Hypertension FATHER MOTHER PULMONARY ARTERY DISEASE FATHER Peripheral arterial disease FATHER Past Social History Social History Comment Smokes half a pack a day; started smoking at 10 years of age. 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 Ambulatory and independent Smoking: Non-Smoker, Less than 1 pack/day Alcohol Use: Occasionally Drug Use: None Lives with: Family Lives In: Home Occupation: employed ROS ROS As stated above in the HPI, otherwise all systems are reviewed and negative. Exam Vitals: Vital Signs Date Time Temp Pulse Resp B/P (MAP) Pulse Ox O2 Delivery O2 Flow Rate FiO2 12/31/24 15:55 12 12/31/24 15:54 66 97 0 12/31/24 12:42 97.1 General: General: Awake and Alert, no acute distress. HEENT: Conjunctiva pink, Sclera clear, Mucus Membranes moist. Resp: Unlabored. Lungs clear to auscultation bilaterally. Heart: Regular Rate and rhythm, normal S1 and S2 without murmur, rub or gallop. Abdomen: Obese, Soft and non tender no organomegaly Extremities: Multiple skin and bone grafts present throughout the lower limbs with left lower limb with more scars when compared to the right. No cyanosis, clubbing or edema Skin: Warm and Dry. Mild pruritic rash on the EKGs thicker areas Diagnostic Data Last Recorded Lab Results: 12/31/24 1241 12/31/24 1241 Counseling Services Smoking & Tobacco Cessation: 3-10 Minutes Advance Care Planning Advanced Care plannin - 30 Minutes Additional Plan 1. Unstable angina: Troponins negative EKG with no ST or T-wave changes Aspirin 325 mg in the ER. Continue aspirin 81 mg NTG one dose relieve the pain, repeat up to the next two doses if chest pain reccurs Echocardiogram for wall motion abnormalities Plan for stress test in a.m.. Informed [place], to reach back two Dr. Carrasquillo after the stress test. Telemetry monitoring 2. Hypertension: Continue home medications of losartan 3. Type 2 diabetes mellitus: Patient takes only 500 mg metformin at nighttime; likely well-controlled diabetes Follow A1c and lipid panel Placed on hyperglycemia/hypoglycemia protocol- 5 units Lantus and low-dose sliding scale insulin. 4. Obesity: On Ozempic 5. Anxiety: Restart medications after reconciliation 6. Nicotine use disorder: Declines a nicotine patch at this time Lines: PIV Code status: Full code DVT prophylaxis: Lovenox Diet: Sodium restricted Hammad Issa PGY2, Internal medicine resident Date of Service: December 31, 2024 Billing Provider: SORAYA LOPEZ MD, DEEPANJALI, RES December 31, 2024 17:24
[2024-12-31] MEDS ORDERED: SIMV10TA98 PO (17:37)
[2024-12-31] MEDS ORDERED: METF-1203 PO (17:37)
[2024-12-31] MEDS ORDERED: SEMA2PEN PO (17:37)
[2024-12-31 17:45] LABS: HEMOGLOBIN A1C 5.3 % (4.5-6.2)
[2024-12-31] MEDS ORDERED: metoprolol tartrate 1mg/ml inj IV PRN (17:50)
[2024-12-31] MEDS ORDERED: aminophylline 250mg/10ml inj. IV PRN (17:50)
[2024-12-31] MEDS ORDERED: nitroGLYCERIN 0.4mg SUBLingual tab SL PRN (17:50)
[2024-12-31 17:55] LABS: BILIRUBIN,URINE NEGATIVE (Neg); CLARITY,URINE CLEAR (Clear); COLOR,URINE STRAW (Yellow); GLUCOSE, URINE NEGATIVE (Neg); KETONES,URINE NEGATIVE (Neg); LEUKOCYTE ESTERASE ,URINE NEGATIVE (Neg); NITRITES, URINE NEGATIVE (Neg); OCCULT BLOOD,URINE SMALL (Neg); PROTEIN,URINE NEGATIVE (Neg); UROBILINOGEN,URINE 0.2 E.U/dL (0.2-1.0)
[2024-12-31 17:57] LABS: UA COLLECTION TYPE NON-SPECIFIED
[2024-12-31 18:00] LABS: APTT 26 SECONDS (22-32); PROTHROMBIN TIME 10.2 SECONDS (9.0-12.0)
[2024-12-31 18:05] LABS: BACTERIA,URINE 1+ /HPF (Neg); MUCUS STRANDS NONE SEEN /LPF (Neg); RBC,URINE 0-2 /HPF (0-2); SQUAMOUS EPITHELIAL CELL,UR MODERATE /LPF (FEW); WBC,URINE 0-4 /HPF (0-4)
[2024-12-31] MEDS: simvastatin 20mg tablet PO SCH (18:19)
[2024-12-31] MEDS: docusate sod 100mg capsule PO SCH (20:00)
[2024-12-31] MEDS: K and/or MAG REPLACEMENT MC SCH (20:00)
[2024-12-31] MEDS: INSULIN LISPRO 100 UNIT/ML INSULN.PEN MULTI-DOSE SQ SCH (21:00)
[2024-12-31] MEDS: insulin glargine (Lantus) pen - multi-dose SQ SCH (21:00)
[2025-01-01] VITALS (8 sets, daily range): BP systolic 132–151; BP diastolic 76–87; PULSE 61–92; RESP 15–18; TEMP 97.4; O2SAT 92–98
[2025-01-01 01:39] LABS: BASOPHILS # (AUTO) 0.1 X10'3 (0-0.2); EOSINOPHILS # (AUTO) 0.1 X10'3 (0-0.9); EOSINOPHILS % (AUTO) 1.5 % (0-6); LYMPHOCYTES # (AUTO) 3.1 X10'3 (1.1-4.8); LYMPHOCYTES % (AUTO) 34.6 % (21-51); MONOCYTES # (AUTO) 0.4 X10'3 (0-0.9); MONOCYTES % (AUTO) 4.7 % (2-12); NEUTROPHILS # (AUTO) 5.2 X10'3 (1.8-7.7); NEUTROPHILS % (AUTO) 58.2 % (42-75)
[2025-01-01 01:57] LABS: ALANINE AMINOTRANSFERASE 29 U/L (12-78); ALBUMIN 3.4 G/DL (3.4-5.0); ALBUMIN/GLOBULIN RATIO 1.2 (1.1-1.5); ALKALINE PHOSPHATASE 81 IU/L (46-116); ANION GAP 6 (8-16); ASPARTATE AMINO TRANSFERASE 16 U/L (10-37); BILIRUBIN,TOTAL 0.3 MG/DL (0.1-1.0); BLOOD UREA NITROGEN 12 MG/DL (7-18); BUN/CREATININE RATIO 13.6 (10.0-20.0); CALCIUM 8.7 MG/DL (8.5-10.1); CHLORIDE 109 MMOL/L (99-107); CHOL/HDL RATIO 3.4 (0.00-4.99); CHOLESTEROL 123 MG/DL (0-200); CREATININE 0.88 MG/DL (0.40-0.90); GLUCOSE 121 MG/DL (70-104); HDL CHOLESTEROL 36 MG/DL (35-60); LDL CHOLESTEROL 76 MG/DL (50-100); MAGNESIUM 2.5 MG/DL (1.5-2.4); PHOSPHORUS 4.1 MG/DL (2.3-4.5); POTASSIUM 3.8 MMOL/L (3.5-5.1); SODIUM 142 MMOL/L (135-145); TOTAL CARBON DIOXIDE 27.4 MMOL/L (24-32); TOTAL PROTEIN 6.3 G/DL (6.4-8.2); TRIGLYCERIDES 222 MG/DL (20-135); eCRCL 77 ML/MIN; eGFR 66 ML/MIN
[2025-01-01 02:26] LABS: HEMATOCRIT 38.2 % (35.0-45.0); HEMOGLOBIN 13.1 g/dl (12.0-16.0); WHITE BLOOD COUNT 7.6 X10'3 (4.5-11.0)
[2025-01-01 02:27] LABS: MEAN CORPUSCULAR HEMOGLOBIN 36.5 PG (27.0-31.0); MEAN CORPUSCULAR HGB CONC 34.4 g/dL (33.0-36.5); MEAN CORPUSCULAR VOLUME 106.1 FL (78-98); MEAN PLATELET VOLUME 9.2 FL (7.4-10.4); PLATELET COUNT 109 X10'3 (140-440); RED CELL DISTRIBUTION WIDTH 12.8 % (11.5-14.5)
--- NOTE | 2025-01-01 07:42 | CARDIOLOGY REPORT ---
APPROVED REPORT EXAM: Comprehensive 2D, Doppler, and color-flow Echocardiogram. Patient Location: ER RM 10 Blood Pressure: 144/101 mmHg Heart Rate: 62 bpm Rhythm: NSR Indications Chest Pain Coronary Artery Disease Angiogram w/o Stent (2010) CVA/TIA Hypertension COPD COMMISS[employer] SUPERINTENDENT: Basil Carrasquillo MD Previous ECHO: 12/16/17, [facility], EF: 60 2D Dimensions LA Diam3.3 cm IVSd 1.3 (0.7-1.1cm) LVDd 4.1 cm PWd 1.0 (0.7-1.1cm) IVSs 1.8 (0.8-1.2cm) LVDs 2.7 (2.5-4.0cm) PWs 1.3 (0.8-1.2cm) LVOT Diameter 2.10 (1.8-2.4cm) LVEF(%) 61.4 (>50%) Ao Asc Diam.3.32 cm IVC 20.10 mmFS (%) 32.5 % SV 44.3 ml CO 2.7 L/min M-Mode Dimensions Left Atrium(MM) 3.83 (2.5-4.0cm) Aortic Root 2.97 (2.2-3.7cm) Aortic Cusp Exc 2.67 (1.5-2.0cm) Aortic Valve AoV Peak Sid. 141.0 cm/s AoV VTI 24.8 cm AO Peak GR. 7.9 mmHg AO Mean GR. 4 mmHg LVOT VTI 28.28 cm LVOT Peak Sid. 128.6 cm/s CHINEDU(VTI)/BSA 3.96 cm2/m2 CHINEDU (VTI) 3.96 cm2 Mitral Valve MV E Velocity 59.4 cm/s MV Peak Gr. 2 mmHg MV DECEL TIME 220 ms MV A Velocity 76.6 cm/s MV PHT 68 ms E/A Ratio 0.8 MVA (PHT) 3.24 cm2 MV VMax64.8 cm/s TDI Lateral E' P. V10.61 cm/s E/Lateral E' 5.6 Tricuspid Valve TR P. Velocity 135 cm/s RAP ESTIMATE 10 mmHg TR Peak Gr. 7 mmHg RVSP 17 mmHg LEFT VENTRICLE The left ventricle is normal size with mild proximal septal thickening. Overall systolic function is normal. LVEF is 60-65%. RIGHT VENTRICLE RV is normal size and function. ATRIA The left atrium size is normal. AORTIC VALVE Trileaflet AV appears mildly sclerotic without stenosis. No insufficiency. MITRAL VALVE Mild mitral annular calcification without stenosis. Trace regurgitation. TRICUSPID VALVE The tricuspid valve is normal in structure with trace regurgitation. PULMONIC VALVE The pulmonary valve is normal in structure without insufficiency. GREAT VESSELS The aortic root is normal in size. The ascending aorta is normal in size. The IVC is normal in size a nd collapses >50% with inspiration. PERICARDIUM Normal pericardium. No effusion. Other Information Study Quality: Fair due to body habitus Conclusion The left ventricle is normal size with mild proximal septal thickening. Overall systolic function is normal. LVEF is 60-65%. RV is normal size and function. The left atrium size is normal. Trileaflet AV appears mildly sclerotic without stenosis. No insufficiency. Mild mitral annular calcification without stenosis. Trace regurgitation. The tricuspid valve is normal in structure with trace regurgitation. The pulmonary valve is normal in structure without insufficiency. Normal pericardium. No effusion.
[2025-01-01] MEDS: enoxaparin 40mg/0.4ml syringe SUBCUT SCH (07:45)
[2025-01-01] MEDS: metoprolol succinate 25mg (24-HOUR) SR. Tablet PO SCH (07:45)
[2025-01-01] MEDS: aspirin 81mg, enteric-coated 1 TAB TABLET.DR PO SCH (07:45)
[2025-01-01] MEDS ORDERED: aminophylline 500mg/20ml vial ONE (09:27)
[2025-01-01] MEDS: regadenoson 0.4mg/5ml syringe IV PRN (09:28)
--- NOTE | 2025-01-01 12:50 | RADIOLOGY REPORT ---
CLINICAL INFORMATION: 54 years old, Female; Unstable angina. TECHNIQUE: 8.6 mCi of technetium 99m sestamibi was infused at rest. Rest SPECT imaging was obtained. Routine protocol for Lexiscan stress study was performed with 0.4 mg of Lexiscan. 30 mCi of techneti um 99m sestamibi was infused. Stress SPECT imaging was obtained. COMPARISON: None FINDINGS: Resting heart rate of 61 BPM increased to maximum rate of 93 BPM. Resting blood pressure me asured 145/76, blood pressure measured 151/84 at stress. There were no significant EKG changes. Ther e was no chest pain. There is no evidence of stress induced ischemia or stress dilatation of the left ventricle. TID ratio is 1.13. Wall motion imaging appears normal. Calculated left ventricular ejection fraction is 62%. IMPRESSION: 1. No evidence of stress-induced ischemia. 2. Left ventricular ejection fraction is 62%.
[2025-01-01] MEDS ORDERED: ASPI-1071 PO (13:30)
[2025-01-01] MEDS ORDERED: METO-395 PO (13:30)
[2025-01-01] MEDS ORDERED: SIMV-42 PO (13:30)
== END 2025-01-01 16:57 | disposition home or self-care (01) | DRG 303 ==
LOC: ER 12:33 → ED HOLD 17:09 → EDBEDREQSVC 23:21 → EDBEDREQTM 23:21 → PCU 3S 01-01 09:25
PROVIDERS: ADMIT Internal Medicine; ATTEND Internal Medicine
PROC: 4A02XM4 Measurement of Cardiac Total Activity, External Approach (ICD-10-PCS; principal; 2025-01-01)
PROC: 3E033HZ Introduction of Radioactive Substance into Peripheral Vein, Percutaneous Approach (ICD-10-PCS; 2025-01-01)
DX: I25.110 Atherosclerotic heart disease of native coronary artery with unstable angina pectoris (principal); E66.9 Obesity, unspecified; E03.9 Hypothyroidism, unspecified; F41.9 Anxiety disorder, unspecified; I11.0 Hypertensive heart disease with heart failure; I50.9 Heart failure, unspecified; K21.9 Gastro-esophageal reflux disease without esophagitis; J44.9 Chronic obstructive pulmonary disease, unspecified; Z79.4 Long term (current) use of insulin; Z87.442 Personal history of urinary calculi; Z90.710 Acquired absence of both cervix and uterus; Z95.5 Presence of coronary angioplasty implant and graft; Z91.040 Latex allergy status; Z88.8 Allergy status to other drugs, medicaments and biological substances; Z86.73 Personal history of transient ischemic attack (TIA), and cerebral infarction without residual deficits; Z87.01 Personal history of pneumonia (recurrent); Z87.440 Personal history of urinary (tract) infections; Z82.49 Family history of ischemic heart disease and other diseases of the circulatory system; Z81.8 Family history of other mental and behavioral disorders; Z83.3 Family history of diabetes mellitus; Z87.891 Personal history of nicotine dependence; Z68.31 Body mass index [BMI] 31.0-31.9, adult
CPT/HCPCS: 36415; 71045; 78452; 80053; 80061; 81001; 82948; 83036; 83735; 83880; 84100; 84484; 85025; 85610; 85730; 93005; 93017; 93306; A9500; G0378; J0280; J1650; J1815; J2785; J7030